=== PATIENT | male | born 1965 | race African-American/Black ===

== ENCOUNTER 2024-01-28 22:27 | Emergency (ER) | payer SELFPAY ==
--- OUTSIDE RECORDS SUMMARY | 2024-01-28 22:31 | XMS REPORT | Continuity of Care Document ---
Author Name Unknown Address [address] [facility] [address] [place] [address] [facility] thconnect Address [address] [facility] [place] [address] Care Team Providers Care Direct Service Provider Name Role Phone Jamari Arango Attending Clinician Unavailable Felix Gaitan Attending Clinician Unavailable Marleen Shea Attending Clinician Unavailable Clifton Lopez Attending Clinician UnavailStacey Youssef Attending Clinician Unavailable Neri Chavis Attending Clinician Unavailable Adriana Staples Attending Clinician Unavailable Fercho Tay Attending Clinician Unavailable Francisco He Attending Clinician Unavailable Marty Walker MD Attending Clinician [phone] Raquel Blanco MD Attending Clinician [phone] Physician, No Primary or Family Admitting Clinic delores Unavailable Raquel Blanco MD Admitting Clinician [phone] Payers Payer Name Policy Type Policy Number Effective Date Expirati on Date Source Allergies, Adverse Reactions, Alerts Allergy Name Allergy Type Status Severity Reaction(s) Onset Date Inactive Date Treating Clinician Comments Source Penicill ins DA Active U HIVES 10-19 00:00: 00 [facility] Penicill ins DA Active NH RASH 10-15 00:00: 00 [facility] PENICILL INS Drug Class Active Hives 6-05 00:00: 00 [facility] Penicill ins DA Active [place] 11-11 00:00: 00 [facility] Penicill ins DA Active NH RASH 11-11 00:00: 00 [facility] Penicill ins DA Active [place] 04-02 00:00: 00 [facility] Penicill ins DA Active NH RASH 04-02 00:00: 00 [facility] NO KNOWN ALLERGIE S Drug Class Active [facility] Encounters Start Date/Time End Date/Time Encounter Type Admission Type Attending Clinicians Care Facility Care Department Encounter ID Source 2022-10-19 13:09:00 2022-10-19 15:50:00 Emergency EM Conchita Jamari [facility] [id number] [facility] 2022-10-19 13:09:00 2022-10-19 15:50:00 [facility] [id number] 52 [facility] 2022-10-15 23:49:00 2022-10-15 23:49:00 Outpatient Felix Gaitan [facility] [id number] [facility] 2022-10-15 13:56:00 2022-10-15 15:38:00 Emergency EM Felix Gaitan [facility] [id number] 61 [facility] 2022-10-13 14:40:00 2022-10-13 14:40:00 Outpatient Marleen Shea [facility] [id number] [facility] 2022-09-03 09:22:00 2022-09-03 10:33:00 Emergency EM [facility]ton Lopez [facility] [id number] 10 [facility] 2022-05-09 01:04:00 2022-05-09 01:10:00 Emergency EM Stacey Willis [facility] [id number] 03 [facility] 2021-06-05 16:02:00 2021-03-15 07:20:00 Inpatient EL Neri Chavis [facility] MRAD [id number] 21 [facility] 2021-03-15 07:16:00 2021-03-15 07:16:00 Outpatient Neri Chavis [facility] [id number] [facility] 2021-03-01 21:33:00 2021-03-02 00:01:00 Emergency EM Adriana Staples [facility] [id number] 00 [facility] 2021-02-14 21:52:00 2021-02-15 00:02:00 Emergency EM Felix Gaitan [facility] [id number] 83 [facility] 2020-12-24 18:34:00 2020-12-24 21:39:00 Emergency EM eFrcho Tay [facility] [id number] 19 [facility] 2020-07-28 18:59:00 2020-07-29 00:12:00 Emergency EM Francisco He [facility] FENG [id number] 24 [facility] 2020-07-28 01:12:00 2020-07-28 11:35:00 Emergency Marty Walker, [facility] [id number] 2020-07-28 01:05:00 2020-07-28 01:05:00 Emergency X [facility] ERT [id number] [facility] 2019-11-12 14:01:00 2019-11-15 22:16:50 Inpatient [facility] FENG [id number] 66 [facility] 2019-10-30 10:43:00 2019-11-04 11:02:21 Inpatient [facility] FENG [id number] [facility] Results Test Description Test Time Test Comments Results Resul t Comments Source - XR CHEST 1 V 2022-10-19 13:44:00 [facility] 1965 Sex: M FAX: Rajesh Coronado [place]: St: DEP Name: ANGELINA CRAIG [facility] : 1965 Age/S: 57/M [address] [facility] Unit #: [id number] Loc: [address] Phys: Rajesh CoronadoP [address] Acct: [id number] Dis Date: Status: DEP ER PHONE #: [phone] Exam Date: 10/19/2022 1327 FAX #: [phone] Reason: PNA R/O EXAMS: CPT CODE: [id number] XR CHEST 1 V 95332 EXAM: XR Chest 1 View INDICATION: PNA R/O LOCATION: B2 COMPARISON: None available. TECHNIQUE: Frontal view of the chest was obtained. FINDINGS: The lungs are clear. There is no pleural effusion or pneumothorax. The cardiomediastinal silhouette is unremarkable. No acute osseous abnormality is identified. IMPRESSION: No acute cardiopulmonary abnormality. at 1344 Reported and signed by: Kendra Beckford M.D. CC: Rajesh Coronado Technologist: JANETT PAREDES Trnscrd Date/Time/By: 10/19/2022 (3001) : By: [email or web address] PAGE 1 Signed Report FAX: Rajesh Coronado [place]: St: DEP Name: ANGELINA CRAIG [facility] : 1965 Age/S: 57/M [address] [facility] [employer] [facility] [place] Unit #: [id number] Loc: [address] [place] [address] Phys: Rajesh Coronado [address] Acct: [id number] Dis Date: Status: DEP ER PHONE #: [phone] Exam Date: 10/19/2022 1327 FAX #: [phone] Reason: PNA R/O EXAMS: CPT CODE: [id number] XR CHEST 1 V 26227 (Continued) Orig Print D/T: S: 10/19/2022 (1347) PAGE 2 Signed Report - XR CHEST 1 V 2022-10-19 13:44:00 [facility] : 1965 Sex: M FAX: Rajesh Coronado [place]: St: REG Name: ANGELINA CRAIG [facility] : 1965 Age/S: 57/M [address] [facility] [employer] Unit #: [id number] Loc: [address] Phys: Rajesh Coronado [address] Acct: [id number] Dis Date: Status: REG ER PHONE #: [phone] Exam Date: 10/19/2022 1327 FAX #: [phone] Reason: PNA R/O EXAMS: CPT CODE: [id number] XR CHEST 1 V 26869 EXAM: XR Chest 1 View INDICATION: PNA R/O LOCATION: B2 COMPARISON: None available. TECHNIQUE: Frontal view of the chest was obtained. FINDINGS: The lungs are clear. There is no pleural effusion or pneumothorax. The cardiomediastinal silhouette is unremarkable. No acute osseous abnormality is identified. IMPRESSION: No acute cardiopulmonary abnormality. at 1344 Reported and signed by: Kendra Beckford M.D. CC: Rajesh Coronado Technologist: JANETT Guaman Date/Time/By: 10/19/2022 (0879) : By: [email or web address] PAGE 1 Signed Report FAX: Rajesh Coronado [place]: St: REG Name: ANGELINA CRAIG [facility] : 1965 Age/S: 57/M [address] [facility] [employer] Unit #: [id number] Loc: E.ERS[address] [place], [place] Phys: Rajesh Coronado [facility] [address] Acct: [id number] Dis Date: Status: REG ER PHONE #: [phone] Exam Date: 10/19/2022 1327 FAX #: [phone] Reason: PNA R/O EXAMS: CPT CODE: [id number] XR CHEST 1 V 55688 (Continued) Orig Print D/T: S: 10/19/2022 (1347) PAGE 2 Signed Report - XR CHEST 1 [id number] 14:50:00 [facility] : 1965 Sex: M FAX: Felix Gaitan MD [place]: St: REG Name: CRAIGANGELINA MARIAH [facility] : 1965 Age/S: 57/M [address] [facility] Unit #: [id number] Loc: E[address]ERS[address] [place], [place]: [place] [address] Acct: [id number] Dis Date: Status: REG ER PHONE #: [phone] Exam Date: 10/15/2022 1446 FAX #: [phone] Reason: COUGH EXAMS: CPT CODE: [id number] XR CHEST 1 V 45204 EXAM: - XR CHEST 1 V INDICATION: COUGH Technique: Frontal view Location: T18 Findings and impression: Lungs appear clear. No pleural effusion seen. Cardiomediastinal silhouette appears unremarkable. Osseous structures appear unremarkable. at 1450 Reported and signed by: Jhonny Rodrigues M.D. CC: Felix Gaitan MD Technologist: HERO HUDDLESTON [facility] Date/Time/By: 10/15/2022 (3697) : By: [email or web address] PAGE 1 Signed Report FAX: Felix Gaitan MD [place]: St: REG Name: ANGELINA CRAIG [facility] : 1965 Age/S: 57/M [address] [facility] Unit #: [id number] Loc: [address] [place]: [place] [address] Acct: [id number] Dis Date: Status: REG ER PHONE #: [phone] Exam Date: 10/15/2022 1446 FAX #: [phone] Reason: COUGH EXAMS: CPT CODE: [id number] XR CHEST 1 P86171 (Continued) Orig Print D/T: S: 10/15/2022 (1825) PAGE 2 Signed Report- XR L-SPINE 2/3 [id number] 10:13:00 [facility] : 1965 Sex: M FAX: Clifton Lopez MD [place]: St: REG Name: ANGELINA CRAIG [facility] : 1965 Age/S: 57/M [address] [facility] [employer] Unit #: [id number] Loc: E.ERS[address] [place], [place]: [place] [address] Acct: [id number] Dis Date: Status: REG ER PHONE #: [phone] Exam Date: 09/03/2022 0955 FAX #: [phone] Reason: pain EXAMS: CPT CODE: [id number] XR L-SPINE 2/3 VIEWS 18321 STUDY: Lumbar spine radiograph HISTORY: Pain COMPARISON: No Prior TECHNIQUE: AP, lateral, and lateral coned down views ofthe lumbar spine. LOCATION: H19 FINDINGS: There are 5 nonrib-bearing lumbar vertebral bodies. There is no significant scoliosis or listhesis. The vertebral body heights are maintained. There is no significant intervertebral disc space narrowing. There are small marginal osteophyte from L3-S1. The pedicles and sacroiliac joints appear symmetric. IMPRESSION: No evidence of acute osseous abnormality. at 1013 Reported and signed by: Robert Amos M.D. CC: Clifton Lopez MD Technologist: SAROJ FLEMING Trnscrd Date/Time/By: 09/03/2022 (1013) : By: [email or web address] PAGE 1 Signed Report FAX: Clifton Lopez MD [place]: St: REG Name: ANGELINA CRAIG [facility] : 1965 Age/S: 57/M [address] [employer] Unit #: [id number] Loc: [address] [place]: [place] [address] Acct: [id number] Dis Date: Status: REG ER PHONE #: [phone] Exam Date: 09/03/2022 0955 FAX #: [phone] Reason: pain EXAMS: CPT CODE: [id number] XRL-SPINE 2/3 VIEWS 21153 (Continued) Orig Print D/T: S: 09/03/2022 (1016) PAGE 2 Signed Report- XR SHOULDER 2 + V [id number] 10:13:00 [facility] : 1965 Sex: M FAX: Clifton Lopez MD [place]: St: REG Name: ANGELINA CRAIG [facility] : 1965 Age/S: 57/M [address] [employer] Unit #: [id number] Loc: LEDY[address] [place], [place]: [place] [address] Acct: [id number] Dis Date: Status: REG ER PHONE #: [phone] Exam Date: 09/03/2022954 FAX #: [phone] Reason: pain EXAMS: CPT CODE: [id number] XR SHOULDER 2 + [place] [address] STUDY: Shoulder radiograph HISTORY: pain COMPARISON: 04/02/2016 TECHNIQUE: Internal rotation, external rotation, and transcapsular Y views of the left shoulder. LOCATION: H19 FINDINGS: There is no acute fracture or glenohumeral dislocation. The acromioclavicular joint exhibits mild osteoarthrosis, unchanged related. There are no abnormal soft tissue calcifications in the region of the rotator cuff to suggest calcific tendinitis. The visualized lung is clear. IMPRESSION: No evidence of acute osseous abnormality. at 1013 Reported and signed by: Robert Amos M.D. CC: Clifton Lopez MD Technologist: SAROJ FLEMING Trnscrd Date/Time/By: 09/03/2022 (1013): By: [email or web address] PAGE 1 Signed Report FAX: Clifton Lopez MD [place]: St: REG Name: ANGELINA CRAIG [facility] : 1965 Age/S: 57/M [address] [employer] Unit #: [id number] Loc: LEDY[address] [place], [place]: [place] [address] Acct: [id number] Dis Date: Status: REG ER PHONE #: [phone] Exam Date: 09/03/2022954 FAX #: [phone] Reason: pain EXAMS: CPT CODE: [id number] XR SHOULDER2 + [place] [address] (Continued) Orig Print D/T: S: 09/03/2022 (1016) PAGE 2 Signed Report- XR C-SPINE 2-3 [id number] 10:12:00 [facility] : 1965 Sex: M FAX: Clifton Lopez MD [place]: St: REG Name: RAFAANGELINAESTHER LEMUS [facility] : 1965 Age/S: 57/M [address] [facility] Unit #: [id number] Loc: [address] [place]: [place] [address] Acct: [id number] Dis Date: Status: REG ER PHONE #: [phone] Exam Date: 09/03/2022 0955 FAX #: [phone] Reason: pain EXAMS: CPT CODE: [id number] XR C-SPINE 2-3 VIEWS 67223 STUDY: Cervical spine radiograph HISTORY: Pain COMPARISON: No Prior TECHNIQUE: 3 views of the cervical spine. LOCATION: H19 FINDINGS: There is no prevertebral soft tissue swelling. There is no significant scoliosis or listhesis. The vertebral body heights are maintained. Multilevel intervertebral disc space narrowing is mild to moderate degree, this appears moderate to advanced at C5-6 with prominent anterior marginal osteophytes. The spinal laminal line is within normal limits. The lateral masses of C1 and C2 are wellaligned. IMPRESSION: No evidence of acute osseous abnormality. Multilevel cervical spondylosis, moderate to advanced at C5-6. at 1012 Reported and signed by: Robert Amos M.D. CC: Clifton Lopez MD Technologist: SAROJ FLEMING Trnilrd Date/Time/By: 09/03/2022 (1012) : By: [email or web address] PAGE 1 Signed Report FAX: Clifton Lopez MD [place]: St: REG -- Name: ANGELINA CRAIG [facility] : 1965 Age/S: 57/M [address] [facility] Unit #: [id number] Loc: [address] [place]: [place] [address] Acct: [id number] Dis Date: Status: REG ER PHONE #: [phone] Exam Date: 09/03/2022954 FAX #: [phone] Reason: pain EXAMS: CPT CODE: [id number] XR C-SPINE 2-3 VIEWS 83921 (Continued) Orig Print D/T: S: 09/03/2022 (1015) PAGE 2 Signed ReportCovid 19 InHouse [id number] 13:58:00* Test Item Value Reference Range Interpretation Comme nts Covid 19 InHouse NTX (test code = [id number]) Positive Negative A This test was pe rformed using the [employer] SmartTM COVID-19 PCRassay. This test was developed and its performancecharacteristics were determined by [facility]. This test has notbeen FDA cleared or approved. This test is authorized by theFDA under Emergency Use Authorization(EUA). The EUA willremain in effect unless it is terminated or revoked by FDA . Testing parameters have not been validated for screeningasymptomatic patients. This test was validated according to the FDA's guidancedocument "Policy for Diagnostics testing in LaboratoriesCertified to Perform High Complexity Testing under CLIA". First test? UnknownEmployed in Healthcare? NoSymptomatic as defined by CDC? YesDate of Symptom Onset: [id number] due to COVID? NoIn ICU due to COVID? NoResident in a congregate care setting? Unknown? NoAge at collection: Y- XR CHEST 1 [id number] 22:38:00 [facility] : 1965 Sex: M FAX: Adriana Staples MD [phone] [place]: St: PRE Name: ANGELINA CRAIG [facility] : 1965 Age/S: 55/M [address] [facility] Unit #: [id number] Loc: [place]: [place] [address] Acct: [id number] Dis Date: Status: PRE ER PHONE #: [phone] Exam Date: 03/01/20212234 FAX #: [phone] Reason: COUGH/COPD EXAMS: CPT CODE: [id number] XR CHEST 1 V 84369 AFTER HOURS SERVICE ON: 03/01/2021 10:38 PM AP Portable Chest Location Code M12 HISTORY: COUGH/COPD FINDINGS: There are no infiltrates. There are no pleural effusions. There is no pneumothorax. Cardiac silhouette andmediastinum appear within normal limits. IMPRESSION: No active pulmonary findings. at 2238 Reported and signed by: Chris Mcpherson M.D. CC: Adriana Staples MD Technologist: [facility] Date/Time/By: 03/01/2021 (2237) : By: [email or web address] PAGE 1 Signed Report FAX: Adriana Staples MD [phone] [place]: St: PRE- Name: ANGELINA CRAIG [facility] : 1965 Age/S: 55/M [address] [facility] Unit #: [id number] Loc: [place]: [place] [address] Acct: [id number] Dis Date: Status: PRE ER PHONE #: [phone] Exam Date: 03/01/20212234 FAX #: [phone] Reason: COUGH/COPD EXAMS: CPT CODE: [id number] XR CHEST 1 V 24669 <Continued> Orig Print D/T: S: 03/01/2021 (7713) PAGE 2 Signed ReportCoronavirus 2019 nCoV [id number] 23:07:00* Test Item Value Reference Range Interpretation Comme nts Coronavirus 2019 nCoV Bedside (test code = [id number]) Negative NEGATIVE Negative results should be treated as presumptive and ifinconsistent with clinical signs and symptoms, or necessaryfor patient management, should be tested with an alternativemolecular assay. Negative results do not preclude TWXT-DrS-8miumajctq and should not be used as the sole basis forpatient management decisions. Negative results should beconsidered in the context of a patient's recent exposures,history, presence of clinical signs and symptoms consistentwith COVID-19. - XR CHEST 1 [id number] 22:49:00 [facility] : 1965 Sex: M FAX: Felix Gaitan MD [place]: St: PRE Name: ANGELINA CRAIG [facility] : 1965 Age/S: 55/M [address] [facility] Unit #: [id number] Loc: E.ERS2 [place], [place]: [place] [address] Acct: [id number] Dis Date: Status: PRE ER PHONE #: [phone] Exam Date: 02/14/20214 FAX #: [phone] Reason: cough EXAMS: CPT CODE: [id number] XR CHEST 1 V 79937 EXAM: - XR CHEST 1 V HISTORY: Cough. COMPARISON: 12/24/2020. FINDINGS: Single AP view of the chest is provided. Heart size and vascularity are within normal limits. There is minimal atelectasis at left lung base. There is no pleural effusion or pneumothorax. There is no definite acute osseous abnormality. IMPRESSION: Minimal left base atelectasis. at 2249 Reported and signed by: Cr Hudson M.D. CC: Felix Gaitan MD Technologist: Jeanne Landin Trnilrd Date/Time/By: 02/14/2021 (4453) : By: [email or web address] PAGE 1 Signed Report FAX: Felix Gaitan MD [place]: EMSt: PRE -- Name: ANGELINA CRAIG [facility] : 1965 Age/S: 55/M [address] [facility] Unit #: [id number] Loc: [address] [place]: [place] [address] Acct: [id number] Dis Date: Status: PRE ER PHONE #: [phone] Exam Date: 02/14/20212247 FAX #: [phone] Reason: cough EXAMS: CPT CODE: [id number] XR CHEST 1 V 57579 <Continued> Orig Print D/T: S: 02/14/2021 (7642) PAGE 2 Signed ReportCOVID 19 INHOUSE [id number] 19:32:00* Test Item Value Reference Range Interpretation Comme nts COVID 19 INHOUSE AG (test code = [id number]) NEGATIVE NEGATIVE Negative results should be treated as presumptive and ifinconsistent with clinical signs and symptoms, or necessaryfor patient management, should be tested with an alternativemolecular assay. Negative results do not preclude LBXP-DwJ-1nubchcoyo and should not be used as the sole basis forpatient management decisions. Negative results should beconsidered in the context of a patient's recent exposures,history, presence of clinical signs and symptoms consistentwith COVID-19. - XR CHEST 1 [id number] 19:29:00 [facility] : 1965 Sex: M FAX: Fercho Tay DO [phone] [place]: St: REG Name: ANGELINA CRAIG [facility] : 1965 Age/S: 55/M [address] [facility] Unit #: [id number] Loc: [place]: [place] [address] Acct: [id number] Dis Date: Status: REG ER PHONE #: [phone] Exam Date: 12/24/20201923 FAX #: [phone] Reason: Cough with sputum EXAMS: CPT CODE: [id number] XR CHEST 1 V 38761 EXAM: - XR CHEST 1 V Location code:C3 HISTORY: Cough with sputum COMPARISON: 07/28/2020 FINDINGS: Single AP view of the chest is provided. Heart size and vascularity are within normal limits. The lungs are clear of focal consolidation. No effusion, pneumothorax, or acute osseous abnormality. IMPRESSION: 1. No radiographic evidence of acute cardiopulmonary process. at 1929 Reported and signed by: Gerardo Pelayo M.D.CC: Fercho Tay DO Technologist: PATRIC HOPE Trnscrd Date/Time/By: 12/24/2020 (1928) : By : [email or web address] PAGE 1 Signed Report FAX: Fercho Tay DO [phone] [place]: St: REG Name: ANGELINA CRAIG [facility] : 1965 Age/S: 55/M [address] [facility] Unit #: [id number] Loc: [place], [place]: [place] [address] Acct: [id number] Dis Date: Status: REG ER PHONE #: [phone] Exam Date: 12/24/20201923 FAX #: [phone] Reason: Cough with sputum EXAMS: CPT CODE: [id number] XR CHEST 1 V 55183 <Continued> Orig Print D/T: S: 12/24/2020 (1932) PAGE 2 Signed ReportUA RFLX MICR CULT IF [id number] 23:21:00* Test Item Value Reference Range Interpretation Comme nts UA COLOR (test code = COLU) YELLOW YEL/STRAW UA APPEARANCE (test code = APPU) CLEAR CLEAR UA GLUCOSE DIPSTICK (test co de = DGLUU) NEGATIVE NEGATIVE UA BILIRUBIN DIPSTICK (test code = BILU) NEGATIVE NEGATIVE UA KETONE DIPSTICK (test cod e = KETU) NEGATIVE NEGATIVE UA SPECIFIC GRAVITY (test co de = SGU) 1.017 1.005-1.030 N UA BLOOD DIPSTICK (test code = PETER) NEGATIVE NEGATIVE UA PH DIPSTICK (test code = ARTHUR) 5.0 5.0-7.0 N UA PROTEIN DIPSTICK (test co de = PROU) NEGATIVE NEGATIVE UA UROBILINIOGEN DIPSTICK (test code = URO) 0.2 mg/dL 0.2-1.0 UA NITRITE DIPSTICK (test co de = BLAKE) NEGATIVE NEGATIVE UA LEUKOCYTE ESTERASE DIPSTI CK (test code = LEUU) NEGATIVE NEGATIVE UA WBC (test code = WBCU) 0-3 WBC/HPF 0-3 UA RBC (test code = RBCU) 0-3 RBC/HPF 0-3 UA WBC NO REFLEX (test code = WBCUCL) 0-3 WBC/HPF 0-3 UA BACTERIA (test code = BACU) NONE SEEN /HPF NONE SEEN UA SQUAMOUS CELLS (test code = SQU) NONE SEEN /HPF NONE SEEN Indication for culture: Dysuria/FrequencySpecimen Description: CLEAN CATCHLACTIC [id number] 20:06:00* Test Item Value Reference Range Interpretation Comme nts LACTIC ACID (test code = LACT) 0.8 mmol/L 0.4-1.9 N B-TYPE NATRIURETIC [id number] 19:55:00* Test Item Value Reference Range Interpretation Comme nts B-TYPE NATRIURETIC PEPTIDE ( test code = BNP) 19.0 PG/ML 0-100 N Coronavirus 2019 nCoV [id number] 19:54:00* Test Item Value Reference Range Interpretation Comme nts Coronavirus 2019 nCoV Bedside (test code = [id number]) NEGATIVE Negative Negative results should be treated as presumptive and, ifinconsistent with clinical signs and symptoms or necessaryfor patient management, should be tested with an alternativemolecular assay. Negative results do not preclude OWIV-QuR-9pdtxontdr and should not be used as the sole basis forpatient management decisions. Negative results should beconsidered in the context of a patient's recent exposures,history, presence of clinical signs and symptoms consistentwith COVID-19. BASIC METABOLIC [id number] 19:46:00* Test Item Value Reference Range Interpretation Comme nts SODIUM (test code = NA) 144 mEq/L 134-147 N POTASSIUM (test code = K) 3.8 mEq/L 3.4-5.0 N CHLORIDE (test code = CL) 113 mEq/L 100-108 H CARBON DIOXIDE (test code = CO2) 26 mEq/l 21-33 N ANION GAP (test code = GAP) 9 0-20 N GLUCOSE (test code = GLU) 114 mg/dL 70-110 H BLOOD UREA NITROGEN (test code = BUN) 13 mg/dL 7-18 N GLOMERULAR FILTRATION RATE (test code = GFR) 83.8 90-95 L Units of measure = ml/min/1.73 m2 CREATININE (test code = CREAT) 1.1 mg/dL 0.6-1.3 N CALCIUM (test code = CA) 8.6 mg/dL 8.0-10.5 N [id number] 19:46:00* Test Item Value Reference Range Interpretation Comme [facility] TROPONIN-I (test code = TROPI) 0.010 ng/mL 0.000-0.045 N Negative: <= 0.0 45 Positive: >= 0.046 Correlation with serial results, other cardiac markers andclinical findings is necessary to determine the clinicalsignificance of this result. Results using different methodologies should not be comparedto one another as quantitative results may vary by method. [id number] 19:46:00* Test Item Value Reference Range Interpretation Comme [facility] D-DIMER (test code = DDIMER) 428 ng/mlFEU See_Comment N THROMBOSIS AND/O R PULMONARY EMBOLISM AND THE CLINICAL CUT- OFF VALUE FOR EXCLUSION (500 ng/mL FEU) OF THESE CONDITIONSIS VALIDATED BY THE UROGYNAECOLOGIST OF THE METHOD. A NEGATIVE D-DIMER RESULT WHEN COMBINED WITH A CLINICALASSESSMENT OF LOW PRETEST PROBABILITY HAS BEEN SHOWN TO HAVEA HIGH NEGATIVE PREDICTIVE VALUE OF DVT OR PE. D-DIMER VALUES >500 ng/mL FEU ARE NOT DIAGNOSTIC FOR DVT, PEor DIC WITHOUT OTHER CONFIRMATORY TESTS AND APPROPRIATECLINICAL EUALUATIONS. [Automated message] The system which generated this result transmitted reference range: <=500. The reference range was not used to interpret this result as normal/abnormal. - XR CHEST 1 [id number] 19:45:00 [facility] : 1965 Sex: MFAX: Francisco Saba [phone] [place]: St: REG Name: ANGELINA CRAIG [facility] [place] : 1965 Age/S: 55/M [address] [place] [address] Unit #: [id number] Loc: [place] [address] Phys: Francisco He DO Acct:[id number] Dis Date: Status: REG ER PHONE #: [phone] Exam Date: 07/28/20201935 FAX #: [phone] Reason: Chest Pain EXAMS: CPT CODE: [id number] XR CHEST 1 V 94580 Chest, single view dated 07/28/2020. HISTORY: Chest pain. Shortness of breath. Cough. Comparison is made to a prior study dated 11/11/2019. The heart is normal in size. The cardiomediastinal shadow is stable. The lungs appear clear. The pulmonary vasculature is normal in caliber. No acute pleural space abnormalities are detected. IMPRESSION: 1. No radiographic evidence of acute cardiopulmonary disease. SL: 131 at 1945 Reported and signed by: Jim Beck M.D. CC: Francisco He DO Technologist: RT Parish(Tiffany) Deniz Date/Time/By: 07/28/2020 (1944) : By: AshlynDMM Orig Print D/T: S: 07/28/2020 (1947) PAGE 1 Signed ReportC W/AUTO [id number] 19:44:00* Test Item Value Reference Range Interpretation Comme nts WHITE BLOOD CELL (test code = WBC) 9.1 x10 3/uL 4.5-11.0 N RED BLOOD CELL (test code = RBC) 5.32 x10 6/uL 4.00-5.60 N HEMOGLOBIN (test code = HGB) 14.2 g/dL 12.5-16.9 N HEMATOCRIT (test code = HCT) 44.2 % 37.5-50.7 N MEAN CELL VOLUME (test code = MCV) 83.1 fL 81.0-99.0 N MEAN CELL HGB (test code = MCH) 26.7 pg 27.0-33.0 L MEAN CELL HGB CONCETRATION (test code = MCHC) 32.1 g/dL 33.0-37.0 L RED CELL DISTRIBUTION WIDTH CV (test code = RDW) 14.6 % 11.5-14.5 H RED CELL DISTRIBUTION WIDTH SD (test code = RDW-SD) 44.0 fL 37.0-54.0 N PLATELET COUNT (test code = PLT) 181 x10 3/uL 150-400 N MEAN PLATELET VOLUME (test c ode = MPV) 11.1 fL 7.0-9.0 H NEUTROPHIL % (test code = NT%) 76.8 % 56.0-77.0 N IMMATURE GRANULOCYTE % (test code = IG%) 0.3 % 0.0-2.0 N LYMPHOCYTE % (test code = LY%) 15.6 % 14.0-32.0 N MONOCYTE % (test code = MO%) 5.8 % 4.8-9.0 N EOSINOPHIL % (test code = EO%) 1.3 % 0.3-3.7 N BASOPHIL % (test code = BA%) 0.2 % 0.0-2.0 N NUCLEATED RBC % (test code = NRBC%) 0.0 % 0-0 N NEUTROPHIL # (test code = NT#) 6.98 x10 3/uL 2.0-7.6 N IMMATURE GRANULOCYTE # (test code = IG#) 0.03 x10 3/uL 0.00-0.03 N LYMPHOCYTE # (test code = LY#) 1.42 x10 3/uL 1.0-3.8 N MONOCYTE # (test code = MO#) 0.53 x10 3/uL 0.1-0.8 N EOSINOPHIL # (test code = EO#) 0.12 x10 3/uL 0.0-0.2 N BASOPHIL # (test code = BA#) 0.02 x10 3/uL 0.0-0.2 N NUCLEATED RBC # (test code = NRBC#) 0.00 x10 3/uL 0.0-0.1 N MANUAL DIFF REQUIRED (test c ode = MDIFF) NO CBC W/AUTO [id number] 19:37:00* Test Item Value Reference Range Interpretation Comme nts WHITE BLOOD CELL (test code = WBC) x10 3/uL 4.5-11.0 RED BLOOD CELL (test code = RBC) x10 6/uL 4.00-5.60 HEMOGLOBIN (test code = HGB) 14.2 g/dL 12.5-16.9 N HEMATOCRIT (test code = HCT) 44.2 % 37.5-50.7 N MEAN CELL VOLUME (test code = MCV) fL 81.0-99.0 MEAN CELL HGB (test code = MCH) pg 27.0-33.0 MEAN CELL HGB CONCETRATION ( test code = MCHC) g/dL 33.0-37.0 RED CELL DISTRIBUTION WIDTH CV (test code = RDW) % 11.5-14.5 PLATELET COUNT (test code = PLT) 181 x10 3/uL 150-400 N NEUTROPHIL % (test code = NT%) % 56.0-77.0 LYMPHOCYTE % (test code = LY%) % 14.0-32.0 NEUTROPHIL # (test code = NT#) x10 3/uL 2.0-7.6 LYMPHOCYTE # (test code = LY#) x10 3/uL 1.0-3.8 MANUAL DIFF REQUIRED (test c ode = MDIFF) Novel Coronavirus 2018 [id number] 13:05:00* Test Item Value Reference Range Interpretation Comme nts Novel Coronavirus 2019 nCoV (test code = COVID19) Negative Negative Does patient have the clinical criteria consistent with COVID-19? YIs the patient going to be discharged home? Y- XR CHEST 2 [id number] 15:59:00FAX: Roxann Laws MD [phone] [place]: St: REG Name: ANGELINA CRAIG [facility] : 1965 Age/S: 54/M [address] [place] [address] Unit #: [id number] Loc: [place] [address] Phys: Roxann Hadley MD Acct: [id number] Dis Date: Status: REG ER PHONE #: [phone] Exam Date: 11/12/2019 1556 FAX #: [phone] Reason: acute cough wheezing EXAMS: CPT CODE: [id number] XR CHEST 2 V 41675 PROCEDURE: Chest Radiograph. Clinical Indication: Acute cough, wheezing, hip pain. Comparison: Chest radiograph 06/27/2010. FINDINGS: The chest shows normal lung volumes without interstitial or airspace opacities, pleural effusions or pneumothorax. The heart size and pulmonary vasculature are normal. The trachea is midline. There are no clinically significant osseous abnormalities noted. IMPRESSION: 1. No chest radiographic evidence of acute cardiopulmonary disease. SL: OCO-H at 9078 Reported and signed by: Erik Jimenez M.D. CC: Roxann Hadley MD Technologist: Jonelle Mccarthy, RT(R); Viridiana Herrera RT(R) Trnilrd Date/Time/By: 11/12/2019 (0472) : By: Naima Orig Print D/T: S: 11/12/2019 (7336) PAGE 1 Signed Report- XR L-SPINE 2/3 [id number] 11:36:00FAX: Bernadine Ross SHELIA [phone] [place]: St: REG Name: ANGELINA CRAIG [facility] : 1965 Age/S: 54/M [address] [place] [address] Unit #: [id number] Loc: [place] [address] Phys: Bernadine Ross Acct: [id number] Dis Date: Status: REG ER PHONE #: [phone] Exam Date: 10/30/2019 113 FAX #:[phone] Reason: lumbar back pain radiating down back left leg EXAMS: CPT CODE: [id number] XR L-SPINE 2/3 VIEWS 88160 Procedure: Lumbar Spine Radiographs. Clinical Indication: Back pain with radiculopathy down the left leg for 2 weeks. Comparison: Lumbar radiographs 06/27/2010. FINDINGS: The 3 views of the lumbar spine show five non rib bearing lumbar vertebral segments. There are no fractures, pars defects, or spondylolisthesis. There is degenerative change from L3 through S1 including narrowing of the intervertebral disc spaces and marginal osteophyte formation. IMPRESSION: 1. Degenerativechange. SL: OCO-H at 1136 Reported and signed by: Erik Jimenez M.D. CC: Bernadine Ross Technologist: RT Nayan(Tiffany) Trnscrd Date/Time/By: 10/30/2019 (1136) : By: Naima Orig Print D/T: S: 10/30/2019 (3718) PAGE 1 Signed Report Notes Date/Time Note Provider Source 2022-10-19 14:15:00 [facility] ([facility] EMERGENCY PROVIDER REPORT REPORT#:[id number] REPORT STATUS: Signed DATE:10/19/22 TIME: 1415 PATIENT: ANGELINA CRAIG UNIT #: [id number] ROOM/BED: AGE: 57 SEX: M PCP PHYS: No Primary or Family Physician SERVICE AUTHOR: Rajesh Coronado * ALL edits or amendments must be made on the electronic/computer document * HPI-URI/Cough/Cold General Initial Greet Date/Time 10/19/22 1309 Presentation Chief Complaint Cough, non-productive Free Text HPI Notes Free Text HPI Notes 57-year-old been able to the past couple of days due to bronchitis: Arrives with a chief complaint of cough. Patient states he was diagnosed couple of days ago and has taken Z-Citlaly and his medications His Cough. Patient Denies Any Worsening Shortness of Breath, Fevers, Nausea, Vomiting, Diarrhea, His Only Concern Due To a Cough That Will Not Stop. Review of Systems ROS Statements All systems rev neg except as marked. Free Text ROS Notes Free Text ROS Notes Constitutional: Denies fatigue, fever Cardiovascular: Denies chest pain Respiratory: Nonproductive cough Denies shortness of breath GI: Denies nausea, vomiting, diarrhea, or abdominal pain Musculoskeletal:Denies decreased ROM, or strength Neurologic: Denies paresthesias, or paralysis Past Medical History - Adult Stated Complaint COUGH Allergies Coded Allergies: Penicillins (Mild, RASH 10/15/22) Home Medications Active Scripts guaiFENesin/DEXTROMETHORPHAN (guaiFENesin-DM (SF) 100-10 MG/5ML) 10 ML PO Q4H PRN PRN COUGH guaiFENesin/DEXTROMETHORPHAN (guaiFENesin-DM (SF) 100-10 MG/5ML) 10 ML PO Q4H PRN PRN COUGH #118 ML Prov: 12/24/20 predniSONE 50 MG PO DAILY predniSONE 50 MG PO DAILY #5 TABS Prov: 12/24/20 AZITHROMYCIN (Z-CITLALY) 250 MG PO ASDIR AZITHROMYCIN (Z-CITLALY) 250 MG PO ASDIR #6 TABS Prov: 02/14/21 AZITHROMYCIN (Z-CITLALY) 250 MG PO ASDIR AZITHROMYCIN (Z-CITLALY) 250 MG PO ASDIR #6 TABS Prov: 10/15/22 guaiFENesin/DEXTROMETHORPHAN (guaiFENesin-DM 100-10 MG/5ML) 5 ML PO Q4H PRN PRN cough guaiFENesin/DEXTROMETHORPHAN (guaiFENesin-DM 100-10 MG/5ML) 5 ML PO Q4H PRN PRN cough #100 ML Prov: 10/15/22 methocarbamoL (ROBAXIN) 1,000 MG PO TID PRN PRN MUSCLE SPASMS/PAIN methocarbamoL (ROBAXIN) 1,000 MG PO TID PRN PRN MUSCLE SPASMS/PAIN #20 TABS Prov: 09/03/22 AZITHROMYCIN (Z-CITLALY) 250 MG PO ASDIR AZITHROMYCIN (Z-CITLALY) 250 MG PO ASDIR #6 TABS Prov: 03/01/21 ALBUTEROL (PROVENTIL HFA 90 MCG/ACT 6.7 GM) 1 PUFF INH RTQ4H ALBUTEROL (PROVENTIL HFA 90 MCG/ACT 6.7 GM) 1 PUFF INH RTQ4H #6.7 GM Prov: 03/01/21 predniSONE 20 MG PO DAILY predniSONE 20 MG PO DAILY #5 TABS Prov: 03/01/21 BENZONATATE (TESSALON) 200 MG PO Q8H PRN PRN COUGH BENZONATATE (TESSALON) 200 MG PO Q8H PRN PRN COUGH #20 CAPS Prov: 03/01/21 Review of Nursing Notes Triage notes reviewed Smoking status for patients 13 years old or older: Current every day smoker Ambulatory Status Independent Physical Exam Vital Signs Vital Signs First Documented: Result Date Time Pulse Ox 99 10/19 1310 B/P 127/84 10/19 1310 B/P Mean 98 10/19 1310 Temp 97.9 10/19 1310 Pulse 74 10/19 1310 Resp 18 10/19 1310 O2 Delivery Room air 10/19 1551 Last Documented: Result Date Time Pulse Ox 96 10/19 1551 B/P 126/86 10/19 1551 B/P Mean 99 10/19 1551 O2 Delivery Room air 10/19 1551 Temp 98.2 10/19 1551 Pulse 50 10/19 1551 Resp 16 10/19 1551 Review of Vital Signs Reviewed Free Text PE Notes Free Text PE Notes General: Awake, alert, no acute distress, nontoxic appearing ENT: Airway patent Respiratory: No signs of respiratory distress, BBS CTA Cardiovascular: Heart sounds NL GI: soft, non-tender, no rebound, guarding, or distention Musculoskeletal: unremarkable Neurologic: Spontaneously awake and alert, speech NL, no motor deficits noted Interpretation Diagnostics Lab Results Interpretation Results Microbiology: Date/Time Procedure - Status Source Growth 10/19 1313 Group A Strep Rapid Antigen - CAN THROAT Cancelled: Cancelled via OE: Physician Decision 10/19 1313 Influenza Virus Type B Antigen - CAN NASOPHARG Cancelled: Cancelled via OE: Physician Decision 10/19 1313 Influenza Virus Type A Antigen - CAN NASOPHARG Cancelled: Cancelled via OE: Physician Decision Recent Impressions: RADIOLOGY - XR CHEST 1 V 10/19 1327 Report Impression - Status: SIGNED Entered: 10/19/2022 1347 IMPRESSION: No acute cardiopulmonary abnormality. Impression By: AshlynEBJose Beckford M.D. Point of Care Testing Pulse Oximetry Pulse Ox % 99 On: Room air Interpretation Interpreted by me, Pulse oximetry normal Time 1314 Re-Evaluation MDM Free Text MDM Notes Additional Text Patient arrives with concern due to persistent cough and recent diagnosis of bronchitis Nontoxic in appearance, not septic Differentials include not limited to: Postviral cough, allergies, reactive airway disease Patient reports no chest pain, no shortness of breath, no fevers, no worsening condition, states he feels better and is only concerned due to the cough. Imaging shows no obvious evidence of pneumonia. No acute abnormalities Patient medicated for cough, discharged education and follow-up instructions -The patient has been informed of today's diagnosis, along with any treatments provided, the reasoning and results of any testing that had been done, and any medications that have been administered or prescribed. They have been provided with instructions on any follow-up that is required, a list of free, or low cost , clinics, and providers, in the area, as well as referrals to the appropriate specialists, and when it is necessary to seek emergent medical interventions. Re-Evaluation/Progress Re-Evaluation/Progress Time of Re-Eval 1419 Plan Post Re-Eval Plan discharge URI/Flu Adult MDM Note The patient is now resting comfortably, is alert and in no distress. The patient has a normal mental status and is neurologically intact. The patient appears well and is able to tolerate food or fluid by mouth, and there is no significant dehydration. There is no respiratory distress and no signs of systemic toxicity. The history, exam, diagnostic testing (if any) and current condition do not demonstrate an infectious process such as meningitis, severe pneumonia, retropharyngeal abscess, epiglottitis, sepsis or other serious bacterial infection requiring further testing, treatment, consultation, or admission at this time. The vital signs have been stable. The patient's condition is stable and appropriate for discharge. The patient will pursue further outpatient evaluation with the primary care physician or other designated or consulting physician as indicated in the discharge instructions. ED Course Medication(s) Ordered Medication(s) Ordered: Central Nervous System Agents Sig/Alina Start time Last Medication Dose Route Stop Time Status Admin Acetaminophen/ 5 ML X1ED STA 10/20 1427 DC Codeine Phosphate PO 10/19 142 Patient Discharge Departure Vital Signs/Condition Vital Signs First Documented: Result Date Time Pulse Ox 99 10/19 1310 B/P 127/84 10/19 1310 B/P Mean 98 10/19 1310 Temp 97.9 10/19 1310 Pulse 74 10/19 1310 Resp 18 10/19 1310 O2 Delivery Room air 10/19 1551 Last Documented: Result Date Time Pulse Ox 96 10/19 1551 B/P 126/86 10/19 1551 B/P Mean 99 10/19 1551 O2 Delivery Room air 10/19 1551 Temp 98.2 10/19 1551 Pulse 50 10/19 1551 Resp 16 10/19 1551 All vital signs available at the time of this entry have been reviewed. Condition Stable, Improved Clinical Impression Clinical Impression Primary Impression: Post-viral cough syndrome Time of Impression 1419 Disposition Decision Discharge )( Discharged to Home Yes )( Time 1419 )( Date 10/19/22 Discharge/Care Plan Counseled Regarding Diagnosis, Need for follow-up, When to return to ED, Smoking cessation Patient Instructions ED Cough GCDV Additional Instructions Thank you for allowing us to provide emergent medical care to you or your family member. We consider it a privilege to have served you during your illness or injury. The examination and treatment that you have received has been on an emergency basis only and is not intended as an effort to provide complete medical care. It is impossible to recognize and treat all elements of an illness or injury in a single ER visit. Your examination and evaluations have shown no further need for EMERGENT concern today, but FOR CONTINUED CARE of todays concern, you will need to follow-up with your family physician. -Please read the instructions provided -You may utilize [id number] medications, as allowed by your family physician, to assist with today's symptoms. - If you have received a prescription, please fill it TODAY and follow the instructions carefully. -Follow-up with specialty physician - Return to the ER for worsening symptoms. -You may follow-up on [email or web address] for complete copy of today's testing. Referrals Provider Referral: Telly Armijo MD Follow-Up: As Needed Notes: PULMONARY [facility] [address] [place] [id number] Provider Referral: Edie Toledo Follow-Up: 2-3 Days Notes: FAMILY MEDICINE Address: [address] [place] [address] [address] [place] [address] Departure Forms FREE OR LOW COST [facility] PCP LIST Discharge Note I have spoken with the patient and/or caregivers. I have explained the patient's condition, diagnoses and treatment plan based on the information available to me at this time. I have answered the patient's and/or caregiver's questions and addressed any concerns. The patient and/or caregivers have as good an understanding of the patient's diagnosis, condition and treatment plan as can be expected at this point. The vital signs have been stable. The patient's condition is stable and appropriate for discharge from the emergency department. The patient will pursue further outpatient evaluation with the primary care physician or other designated or consulting physician as outlined in the discharge instructions. The patient and/or caregivers are agreeable to this plan of care and follow-up instructions have been explained in detail. The patient and/or caregivers have received these instructions in written format and have expressed an understanding of the discharge instructions. The patient and/or caregivers are aware that any significant change in condition or worsening of symptoms should prompt an immediate return to this or the closest emergency department or a call to 911. at 2048 at 1955 [facility] #:[id number] END OF REPORT [facility] 2022-10-15 15:18:00 [facility] ([facility]) EMERGENCY PROVIDER REPORT REPORT#:[id number] REPORT STATUS: Signed DATE:10/15/22 TIME: 151 PATIENT: ANGELINA CRAIG UNIT #: [id number] ROOM/BED: AGE: 57 SEX: M PCP PHYS: No Primary or Family Physician SERVICE AUTHOR: Felix Gaitan MD * ALL edits or amendments must be made on the electronic/computer document * HPI-URI/Cough/Cold General Initial Greet Date/Time 10/15/22 1358 Presentation Chief Complaint Cough, productive, Nasal congestion, Runny nose Free Text HPI Notes Free Text HPI Notes 57-year-old male presents to the ED with non productive since yesterday, no chest pain, no shortness of breath, no leg swelling no recent travel. Review of Systems ROS Statements All systems rev neg except as marked. Past Medical History - Adult Stated Complaint COUGH Allergies Coded Allergies: Penicillins (Mild, RASH 10/15/22) Home Medications Active Scripts guaiFENesin/DEXTROMETHORPHAN (guaiFENesin-DM (SF) 100-10 MG/5ML) 10 ML PO Q4H PRN PRN COUGH guaiFENesin/DEXTROMETHORPHAN (guaiFENesin-DM (SF) 100-10 MG/5ML) 10 ML PO Q4H PRN PRN COUGH #118 ML Prov: 12/24/20 predniSONE 50 MG PO DAILY predniSONE 50 MG PO DAILY #5 TABS Prov: 12/24/20 AZITHROMYCIN (Z-CITLALY) 250 MG PO ASDIR AZITHROMYCIN (Z-CITLALY) 250 MG PO ASDIR #6 TABS Prov: 02/14/21 methocarbamoL (ROBAXIN) 1,000 MG PO TID PRN PRN MUSCLE SPASMS/PAIN methocarbamoL (ROBAXIN) 1,000 MG PO TID PRN PRN MUSCLE SPASMS/PAIN #20 TABS Prov: 09/03/22 AZITHROMYCIN (Z-CITLALY) 250 MG PO ASDIR AZITHROMYCIN (Z-CITLALY) 250 MG PO ASDIR #6 TABS Prov: 03/01/21 ALBUTEROL (PROVENTIL HFA 90 MCG/ACT 6.7 GM) 1 PUFF INH RTQ4H ALBUTEROL (PROVENTIL HFA 90 MCG/ACT 6.7 GM) 1 PUFF INH RTQ4H #6.7 GM Prov: 03/01/21 predniSONE 20 MG PO DAILY predniSONE 20 MG PO DAILY #5 TABS Prov: 03/01/21 BENZONATATE (TESSALON) 200 MG PO Q8H PRN PRN COUGH BENZONATATE (TESSALON) 200 MG PO Q8H PRN PRN COUGH #20 CAPS Prov: 03/01/21 Pt reports no significant: Past medical history, Past surgical history Alcohol Use Alcohol use (social EtOH use) Drug Use Denies recreational drugs Smoking status for patients 13 years old or older: Current every day smoker Physical Exam Vital Signs Vital Signs First Documented: Result Date Time Pulse Ox 98 10/15 1357 B/P 123/72 10/15 1357 B/P Mean 89 10/15 1357 O2 Delivery Room air 10/15 135 Temp 36.6 10/15 1357 Pulse 90 10/15 1357 Resp 17 10/15 1357 Last Documented: Result Date Time Pulse Ox 98 10/15 1357 B/P 123/72 10/15 1357 B/P Mean 89 10/15 1357 O2 Delivery Room air 10/15 1357 Temp 36.6 10/15 1357 Pulse 90 10/15 1357 Resp 17 10/15 1357 Review of Vital Signs Reviewed Focused PE General/Const General/Const Awake, Alert, Well appearing, Not toxic appearing Eyes Eyes PERRL Ears/Nose/Throat Ears/Nose/Throat Airway patent, Mucous membranes moist, Pharynx NL, Tympanic membs NL, Ext aud canal NL, Nose exam NL, No sinus tenderness MS Neck Neck Supple, No meningismus, Full range of motion, No adenopathy, No swelling , Non-tender Resp/Chest Respiratory/Chest Breath sounds NL, Breath sounds = bilat, No respiratory distress, No rales, No rhonchi, No wheezing, No retractions, No stridor Cardiovascular Cardiovascular Heart rate NL, Regular rhythm, Heart sounds NL, Peripheral circulation NL Abdomen/GI Abdomen/GI Soft, Non-tender, No guarding, No rebound Skin Skin Color NL, No rash, Warm, Dry, Turgor NL Neurologic Neurologic Oriented X3, Speech NL, No motor deficits, No sensory deficits Interpretation Diagnostics Lab Results Interpretation Considerations Independ review imaging, Reviewed prior records Results Laboratory Tests: 10/16 1435 Serology SARS CoV-2 RNA Rapid AAYAN (NEGATIVE) Negative Microbiology: Date/Time Procedure - Status Source Growth 08/23 1435 Group A Strep Rapid Antigen - COMP THROAT 10/15 1435 Streptococcus Culture - COMP THROAT 10/15 1435 Influenza Virus Type B Antigen - COMP NASOPHARG 10/15 1435 Influenza Virus Type A Antigen - COMP NASOPHARG Recent Impressions: RADIOLOGY - XR CHEST 1 V 10/15 1446 Report Impression - Status: SIGNED Entered: 10/15/2022 1453 impression: Lungs appear clear. No pleural effusion seen. Cardiomediastinal silhouette appears unremarkable. Osseous structures appear unremarkable. Impression By: AshlynAHPadma Rodrigues M.D. Lab Statement Laboratory studies reviewed and considered in the medical decision-making. Imaging Statement Radiographic studies reviewed and considered in the medical decision-making. Point of Care Testing Pulse Oximetry Pulse Ox % 98 On: Room air Interpretation Interpreted by me, Pulse oximetry normal Re-Evaluation MDM Free Text MDM Notes Free Text MDM Notes no hypoxemia no resp distress Re-Evaluation/Progress Re-Evaluation/Progress Re-Eval Status Unchanged ED Course Medication(s) Ordered Medication(s) Ordered: Central Nervous System Agents Sig/Alina Start time Last Medication Dose Route Stop Time Status Admin Acetaminophen 650 MG X1ED STA 10/15 1421 DC 10/15 PO 10/15 1422 1442 Differential Diagnosis Differential Diagnosis Pneumonia, Pneumonia, bacterial, Pneumonia, community acq , Seasonal allergy Patient Discharge Departure Vital Signs/Condition Vital Signs First Documented: Result Date Time Pulse Ox 98 10/15 1357 B/P 123/72 10/15 1357 B/P Mean 89 10/15 1357 O2 Delivery Room air 10/15 1357 Temp 36.6 10/15 1357 Pulse 90 10/15 1357 Resp 17 10/15 1357 Last Documented: Result Date Time Pulse Ox 98 10/15 1357 B/P 123/72 10/15 1357 B/P Mean 89 10/15 1357 O2 Delivery Room air 10/15 1357 Temp 36.6 10/15 1357 Pulse 90 10/15 1357 Resp 17 10/15 1357 All vital signs available at the time of this entry have been reviewed. Condition Stable, Improved Clinical Impression Clinical Impression Primary Impression: Cough Secondary Impressions: Bronchitis Disposition Decision Discharge )( Discharged to Home Yes )( Time 1519 )( Date 10/15/22 Discharge/Care Plan Counseled Regarding Diagnosis, Imaging studies, Need for follow-up, When to return to ED (Auto) Prescriptions Current Visit Scripts AZITHROMYCIN (Z-CITLALY) 250 MG PO ASDIR AZITHROMYCIN (Z-CITLALY) 250 MG PO ASDIR #6 TABS Take 2 tablets today, then 1 tablet daily thereafter for a total of 5 days of treatment. guaiFENesin/DEXTROMETHORPHAN (guaiFENesin-DM 100-10 MG/5ML) 5 ML PO Q4H PRN PRN cough guaiFENesin/DEXTROMETHORPHAN (guaiFENesin-DM 100-10 MG/5ML) 5 ML PO Q4H PRN PRN cough #100 ML Prescriptions Reviewed Risks, Benefits, Alternative treatment Patient Instructions ED URI Abx Referrals Provider Referral: Neri Chavis MD Address: [address] [place] [address] Provider Referral: Francisco Decker MD Address: [address] [place] [address] Departure Forms [facility] PCP LIST WORK/SCHOOL EXCUSE-CAREGIVER 2 Discharge Note I have spoken with the patient and/or caregivers. I have explained the patient's condition, diagnoses and treatment plan based on the information available to me at this time. I have answered the patient's and/or caregiver's questions and addressed any concerns. The patient and/or caregivers have as good an understanding of the patient's diagnosis, condition and treatment plan as can be expected at this point. The vital signs have been stable. The patient's condition is stable and appropriate for discharge from the emergency department. The patient will pursue further outpatient evaluation with the primary care physician or other designated or consulting physician as outlined in the discharge instructions. The patient and/or caregivers are agreeable to this plan of care and follow-up instructions have been explained in detail. The patient and/or caregivers have received these instructions in written format and have expressed an understanding of the discharge instructions. The patient and/or caregivers are aware that any significant change in condition or worsening of symptoms should prompt an immediate return to this or the closest emergency department or a call to 911. Quality Measures BP F/U for HTN Referred for BP f/u < 4wk, F/u with PCP/other doc Approp Tx for URI 3 months or older, Dx upper resp infection, Given Abx for other Dx Smoking Cessation Screened, tobacco user, Tobacco cess intervention Tobacco Screening/Cessation 18 years or older, Tobacco user Smoking Cessation Counseling The patient was questioned regarding their smoking habits, and I have determined , as the patient's treating physician, that there is a medical necessity in regards to the patient's medical condition to provide smoking cessation program education. The patient was advised to stop smoking and counseled for a period of greater than 3 minutes. The patient was instructed to follow up with a primary care physician for smoking cessation and given information regarding local smoking cessation programs in the area. The patient received detailed discharge instructions as to how to stop smoking. The patient expressed an understanding of the need to follow up and the plan for smoking cessation. at 1628 RPT #:[id number] END OF REPORT [facility] 2022-09-03 09:32:00 [facility] ([facility]) EMERGENCY PROVIDER REPORT REPORT#:[id number] REPORT STATUS: Signed DATE:09/03/22 TIME: 931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 (SF) 100-10 MG/5ML) 10 ML PO Q4H PRN PRN COUGH #118 ML Prov: 12/24/20 predniSONE 50 MG PO DAILY predniSONE 50 MG PO DAILY #5 TABS Prov: 12/24/20 Alcohol Use Alcohol use (social EtOH use) Drug Use Denies recreational drugs Smoking status: Smoking status for patients 13 years old or older: Current every day smoker Physical Exam Vital Signs Vital Signs First Documented: Result Date Time Pulse Ox 97 02/14 2153 B/P 127/82 02/14 2153 B/P Mean 97 02/14 2153 O2 Delivery Room air 02/14 2153 Temp 37.9 02/14 2153 Pulse 93 02/14 2153 Resp 02/14 Last Documented: Result Date Time Pulse Ox 94 02/15 B/P 118/77 02/15 B/P Mean 90 02/15 O2 Delivery Room air 02/15 Pulse 95 02/15 Resp 18 02/15 Temp 37.9 02/14 2153 Review of Vital Signs Reviewed Focused PE General/Const General/Const Awake, Alert, Well appearing, Not toxic appearing Eyes Eyes PERRL Ears/Nose/Throat Ears/Nose/Throat Airway patent, Mucous membranes moist, Pharynx NL, Tympanic membs NL, Ext aud canal NL, Nose exam NL, No sinus tenderness MS Neck Neck Supple, No meningismus, Full range of motion, No adenopathy, No swelling , Non-tender Resp/Chest Text/Dict Notes Diminished breath sounds crackles at the bases. Good bilateral breath sounds noted. No tachypnea Cardiovascular Cardiovascular Heart rate NL, Regular rhythm, Heart sounds NL, Peripheral circulation NL Abdomen/GI Abdomen/GI Soft, Non-tender, No guarding, No rebound Skin Skin Color NL, No rash, Warm, Dry, Turgor NL Neurologic Neurologic Oriented X3, Speech NL, No motor deficits, No sensory deficits Interpretation Diagnostics Lab Results Interpretation Considerations Independ review imaging, Reviewed prior records Results Laboratory Tests: 02/15 2240 Serology SARS CoV-2 RNA Rapid AYAAN (NEGATIVE) Negative Microbiology: Date/Time Procedure - Status Source Growth 02/15 2240 Influenza Virus Type B Antigen - COMP NASOPHARG 02/15 2240 Influenza Virus Type A Antigen - COMP NASOPHARG Recent Impressions: RADIOLOGY - XR CHEST 1 V 02/15 2248 Report Impression - Status: SIGNED Entered: 02/14/20212252 IMPRESSION: Minimal left base atelectasis. Impression By: Elba Hudson M.D. Lab Statement Laboratory studies reviewed and considered in the medical decision-making. Point of Care Testing Pulse Oximetry Pulse Ox % 98 On: Room air Interpretation Interpreted by me, Pulse oximetry normal Re-Evaluation MDM Free Text MDM Notes Free Text MDM Notes Nontoxic-appearing no hypoxemia Re-Evaluation/Progress Re-Evaluation/Progress Re-Eval Status Improved Pain Re-Evaluation Denies pain Exam Post Tx - General Active, Alert, Appears non-toxic Patient Discharge Departure Vital Signs/Condition Vital Signs First Documented: Result Date Time Pulse Ox 97 02/14 2153 B/P 127/82 02/14 2153 B/P Mean 97 02/14 2153 O2 Delivery Room air 02/14 2153 Temp 37.9 02/14 2153 Pulse 93 02/14 2153 Resp 18 02/14 2153 Last Documented: Result Date Time Pulse Ox 94 02/15 B/P 118/77 02/15 B/P Mean 90 02/15 O2 Delivery Room air 02/15 Pulse 95 02/15 Resp 18 02/15 Temp 37.9 02/14 2153 All vital signs available at the time of this entry have been reviewed. Condition Stable, Improved Clinical Impression Clinical Impression Primary Impression: Acute bacterial bronchitis Disposition Decision Discharge )( Discharged to Home Yes )( Time 235 )( Date 02/14/21 Discharge/Care Plan Counseled Regarding Diagnosis, Lab results, Need for admission, When to return to ED (Auto) Prescriptions Current Visit Scripts AZITHROMYCIN (Z-CITLALY) 250 MG PO ASDIR AZITHROMYCIN (Z-CITLALY) 250 MG PO ASDIR #6 TABS Take 2 tablets today, then 1 tablet daily thereafter for a total of 5 days of treatment. Prescriptions Reviewed Risks, Benefits, Alternative treatment Patient Instructions ED Upper Resp Infec Abx Tx Referrals PRIMARY CARE RETURN TO THE ER Departure Forms [facility] PCP LIST WORK/SCHOOL EXCUSE-CAREGIVER 2 Discharge Note I have spoken with the patient and/or caregivers. I have explained the patient's condition, diagnoses and treatment plan based on the information available to me at this time. I have answered the patient's and/or caregiver's questions and addressed any concerns. The patient and/or caregivers have as good an understanding of the patient's diagnosis, condition and treatment plan as can be expected at this point. The vital signs have been stable. The patient's condition is stable and appropriate for discharge from the emergency department. The patient will pursue further outpatient evaluation with the primary care physician or other designated or consulting physician as outlined in the discharge instructions. The patient and/or caregivers are agreeable to this plan of care and follow-up instructions have been explained in detail. The patient and/or caregivers have received these instructions in written format and have expressed an understanding of the discharge instructions. The patient and/or caregivers are aware that any significant change in condition or worsening of symptoms should prompt an immediate return to this or the closest emergency department or a call to 911. Quality Measures BP F/U for HTN Referred for BP f/u < 4wk, F/u with PCP/other doc Acute Bronchitis Ab 3 months or older (BACTARIAL), Bronchitis/bronchiolitis, Abx given for med reason at 0533 RPT #:[id number] END OF REPORT [facility] 2020-12-24 19:02:00 [facility] ([facility]) EMERGENCY PROVIDER REPORT REPORT#:[id number] REPORT STATUS: Signed DATE:12/24/20 TIME: 1901 PATIENT: ANGELINA CRAIG UNIT #: [id number] ROOM/BED: AGE: 55 SEX: M PCP PHYS: No Primary or Family Physician SERVICE AUTHOR: Fercho Tay DO * ALL edits or amendments must be made on the electronic/computer document * HPI-URI/Cough/Cold General Initial Greet Date/Time 12/24/20 184 Presentation Chief Complaint Cough, productive Free Text HPI Notes Free Text HPI Notes Is a 55-year-old male presenting to the ED with chief complaint of cough and sputum which started earlier today. Denies any fever chills denies any shortness of breath or chest pain Review of Systems ROS Statements All systems rev neg except as marked. Free Text ROS Notes Free Text ROS Notes Constitutional: Patient denies recent illness fever injury Musculoskeletal: Patient denies neck or back pain and calf pain Pulm: Reports cough Chest: Pt denies chest pain, palpitations Lymph: Patient denies palpable lymph nodes or ankle swelling GI: Patient denies abdominal pain, nausea, vomiting, diarrhea and black stools : Patient denies problems with urination Eyes: Patient denies problems with vision HEENT: Patient denies sore throat, difficulty swallowing Skin: Patient denies rash, redness Endo: Patient denies recent weight change Neuro: Patient denies headache or syncope Psych: Patient denies anxiety or depression, denies SI All other systems reviewed and negative Past Medical History - Adult Stated Complaint COUGH WITH SPUTUM SINCE THIS MORNING Allergies Coded Allergies: Penicillins (Mild, RASH 11/12/19) Home Medications Discontinued Scripts AZITHROMYCIN (Z-CITLALY) 250 MG PO ASDIR AZITHROMYCIN (Z-CITLALY) 250 MG PO ASDIR #6 TABS Prov: 07/28/20 DC: 12/24/201953 Patient stopped taking KETOROLAC (TORADOL) 10 MG PO Q6H PRN PRN PAIN KETOROLAC (TORADOL) 10 MG PO Q6H PRN PRN PAIN #20 TABS Prov: 07/28/20 DC: 12/24/201953 Patient stopped taking Alcohol Use Alcohol use (social EtOH use) Drug Use Denies recreational drugs Smoking status: Smoking status for patients 13 years old or older: Current some day smoker Physical Exam Vital Signs Vital Signs First Documented: Result Date Time Pulse Ox 98 12/24 1842 B/P 114/76 12/24 1842 B/P Mean 88 12/24 1842 O2 Delivery Room air 12/24 1842 Temp 36.6 12/24 1842 Pulse 79 12/24 1842 Resp 19 12/24 1842 Last Documented: Result Date Time Pulse Ox 100 12/24 2138 B/P 138/89 12/24 2138 B/P Mean 105 12/24 2138 O2 Delivery Room air 12/24 2138 Temp 37.1 12/24 2138 Pulse 72 12/24 2138 Resp 19 12/24 2138 Review of Vital Signs Reviewed Free Text PE Notes Free Text PE Notes General: Patient in no acute distress, appears stated age HEENT: Normocephalic, atraumatic, nares are patent bilaterally, pupils are equal round reactive to light and accommodation intact Neck: Trachea is midline, no JVD present, no subcutaneous emphysema Chest: Breath sounds are present in all [place], no wheezes rales or rhonchi, equal excursion normal respiratory effort Cardiovascular: Regular rate and rhythm with no rubs murmurs or gallops, Extremities: Normal range of movement active and passive, 2+ pulses in all extremities, no edema, normal color Neuro: Cranial nerves II through XII grossly intact, patient able to move all extremities, no focal neuro deficits Psych: Appropriate mood and affect Back: No vertebral tenderness, no CVA tenderness Abdomen: Abdomen is soft non-tender non-distended, no pulsatile masses, no abdominal bruits, normal bowel sounds Interpretation Diagnostics Lab Results Interpretation Results Laboratory Tests: 12/24 1902 Serology SARS-CoV-2 Ag (Rapid) (NEGATIVE) NEGATIVE Recent Impressions: RADIOLOGY - XR CHEST 1 V 12/25 1923 Report Impression - Status: SIGNED Entered: 12/24/20201932 IMPRESSION: 1. No radiographic evidence of acute cardiopulmonary process. Impression By: [email or web address] - Gerardo Pelayo M.D. Re-Evaluation MDM Re-Evaluation/Progress Re-Evaluation/Progress Time of Re-Eval 1999 Re-Eval Status Improved Patient Discharge Departure Vital Signs/Condition Vital Signs First Documented: Result Date Time Pulse Ox 98 12/24 1842 B/P 114/76 12/24 1842 B/P Mean 88 12/24 1842 O2 Delivery Room air 12/24 1842 Temp 36.6 12/24 1842 Pulse 79 12/24 1842 Resp 19 12/24 1842 Last Documented: Result Date Time Pulse Ox 100 12/24 2138 B/P 138/89 12/24 2138 B/P Mean 105 12/24 2138 O2 Delivery Room air 12/24 2138 Temp 37.1 12/24 2138 Pulse 72 12/24 2138 Resp 19 12/24 2138 All vital signs available at the time of this entry have been reviewed. Clinical Impression Clinical Impression Primary Impression: Bronchitis Secondary Impressions: Cough Disposition Decision Discharge )( Discharged to Home Yes )( Time 2129 )( Date 12/24/20 Discharge/Care Plan Counseled Regarding Diagnosis, Lab results, Imaging studies, Prescriptions, Need for follow-up, When to return to ED Prescriptions Guaifenesin with dextromethorphan, prednisone (Auto) Prescriptions Current Visit Scripts guaiFENesin/DEXTROMETHORPHAN (guaiFENesin-DM (SF) 100-10 MG/5ML) 10 ML PO Q4H PRN PRN COUGH guaiFENesin/DEXTROMETHORPHAN (guaiFENesin-DM (SF) 100-10 MG/5ML) 10 ML PO Q4H PRN PRN COUGH #118 ML predniSONE 50 MG PO DAILY predniSONE 50 MG PO DAILY #5 TABS Prescriptions Reviewed Risks, Benefits, Alternative treatment Patient Instructions ED Cough GCDV, ED Upper Resp Infec No Abx Tx Referrals PRIMARY CARE: 2-3 Days Discharge Note I have spoken with the patient and/or caregivers. I have explained the patient's condition, diagnoses and treatment plan based on the information available to me at this time. I have answered the patient's and/or caregiver's questions and addressed any concerns. The patient and/or caregivers have as good an understanding of the patient's diagnosis, condition and treatment plan as can be expected at this point. The vital signs have been stable. The patient's condition is stable and appropriate for discharge from the emergency department. The patient will pursue further outpatient evaluation with the primary care physician or other designated or consulting physician as outlined in the discharge instructions. The patient and/or caregivers are agreeable to this plan of care and follow-up instructions have been explained in detail. The patient and/or caregivers have received these instructions in written format and have expressed an understanding of the discharge instructions. The patient and/or caregivers are aware that any significant change in condition or worsening of symptoms should prompt an immediate return to this or the closest emergency department or a call to 911. at 0110 [facility] #:[phone] END OF REPORT [facility] 2020-07-28 19:05:00 [facility] ([facility]) EMERGENCY PROVIDER REPORT REPORT#:[id number] REPORT STATUS: Signed DATE:07/28/20 TIME: 1904 PATIENT: ANGELINA CRAIG UNIT #: [id number] ROOM/BED: AGE: 55 SEX: M PCP PHYS: No Primary or Family Physician SERVICE AUTHOR: Francisco He DO * ALL edits or amendments must be made on the electronic/computer document * HPI-Dyspnea/Wheezing Free Text HPI Notes Free Text HPI Notes 55M no significant PMHx complaining of chest pain cough and decreased p.o. intake for 3 days due to having no appetite. Denies fevers chills or night sweats. Patient states that he has been having chest pain due to coughing. Cough is nonproductive. Denies abdominal pain nausea or vomiting. General Initial Greet Date/Time 07/28/201899 PCP No PCP Presentation Chief Complaint Chest pain )( Sudden in Onset? No Review of Systems ROS Statements All systems rev neg except as marked. Past Medical History - Adult Stated Complaint SOB AND COUGH FOR 3 DAYS Allergies Coded Allergies: Penicillins (Mild, RASH 11/12/19) Physical Exam Vital Signs Vital Signs First Documented: Result Date Time Pulse Ox 97 07/29 1919 B/P 131/86 07/29 1919 B/P Mean 101 07/29 1919 O2 Delivery Room air 07/29 1919 Temp 36.6 07/29 1919 Pulse 92 07/29 1919 Resp 22 07/29 1919 Last Documented: Result Date Time Pulse Ox 100 07/29 0005 B/P 128/72 07/29 4 B/P Mean 90 07/29 4 O2 Delivery Room air 07/29 4 Pulse 92 07/29 4 Resp 20 07/29 4 Temp 37.7 07/28 2303 Review of Vital Signs Reviewed Focused PE General/Const General/Const Awake, Alert, No acute distress, Well appearing, Well developed , Well hydrated, Well nourished, Cooperative, Not toxic appearing Ears/Nose/Throat Ears/Nose/Throat Airway patent MS Neck Neck Full range of motion Resp/Chest Respiratory/Chest Atraumatic, Breath sounds NL, Breath sounds = bilat, No respiratory distress, No rales, No rhonchi, No wheezing, No retractions, No stridor, No chest tenderness, No chest wall deformity, No crepitus Cardiovascular Cardiovascular Heart rate NL, Regular rhythm, Heart sounds NL Heart Rate/Rhythm Negative: Bradycardia, Tachycardia, Irregular rhythm, Irreg irregular rhythm. Abdomen/GI Abdomen/GI No distention MS Back Back Full range of motion, Painless range of motion Skin Skin Color NL, No rash, Warm, Dry, Intact Neurologic Neurologic Oriented X3, Speech NL, No motor deficits, CN II - XII intact, Gait NL Additional PE MS Head Head Atraumatic, Normocephalic Eyes Eyes EOMI Lymphatic Lymphatic No gross adenopathy Psychiatric Psychiatric Affect NL, Mood NL Interpretation Diagnostics Lab Results Interpretation Results Laboratory Tests 07/28/201922: [Embedded Image Not Available] Laboratory Tests: 07/28 07/28 07/28 07/28 2259 1937 1929 1922 Chemistry Lactic Acid (0.4 - 1.9 mmol/L) 0.8 B-Natriuretic Peptide (0 - 100 PG/ML) 19.0 Serology SARS CoV-2 RNA Rapid AYAAN (Negative) NEGATIVE Urines Urine Color (YEL/STRAW) YELLOW Urine Appearance (CLEAR) CLEAR Urine pH (5.0 - 7.0) 5.0 Ur Specific [place] (1.005 - 1.030) 1.017 Urine Protein (NEGATIVE) NEGATIVE Urine Glucose (UA) (NEGATIVE) NEGATIVE Urine Ketones (NEGATIVE) NEGATIVE Urine Blood (NEGATIVE) NEGATIVE Urine Nitrite (NEGATIVE) NEGATIVE Urine Bilirubin (NEGATIVE) NEGATIVE Urine Urobilinogen (0.2 - 1.0 mg/dL) 0.2 Ur Leukocyte Esterase (NEGATIVE) NEGATIVE Urine RBC (0 - 3 RBC/HPF) 0-3 Urine WBC (0 - 3 WBC/HPF) 0-3 Ur Squamous Epith Cells (NONE SEEN /HPF) NONE SEEN Urine Bacteria (NONE SEEN /HPF) NONE SEEN 07/28 1922 Chemistry Sodium (134 - 147 mEq/L) 144 Potassium (3.4 - 5.0 mEq/L) 3.8 Chloride (100 - 108 mEq/L) 113 H Carbon Dioxide (21 - 33 mEq/l) 26 Anion Gap (0 - 20) 9 BUN (7 - 18 mg/dL) 13 Creatinine (0.6 - 1.3 mg/dL) 1.1 Glomerular Filtr Rate (90 - 95) 83.8 L Glucose (70 - 110 mg/dL) 114 H Calcium (8.0 - 10.5 mg/dL) 8.6 Troponin I (0.000 - 0.045 ng/mL) 0.010 Coagulation D-Dimer (<=500 ng/mlFEU) 428 Hematology WBC (4.5 - 11.0 x10 3/uL) 9.1 RBC (4.00 - 5.60 x10 6/uL) 5.32 Hgb (12.5 - 16.9 g/dL) 14.2 Hct (37.5 - 50.7 %) 44.2 MCV (81.0 - 99.0 fL) 83.1 MCH (27.0 - 33.0 pg) 26.7 L MCHC (33.0 - 37.0 g/dL) 32.1 L RDW (11.5 - 14.5 %) 14.6 H Plt Count (150 - 400 x10 3/uL) 181 MPV (7.0 - 9.0 fL) 11.1 H Neut % (Auto) (56.0 - 77.0 %) 76.8 Lymph % (Auto) (14.0 - 32.0 %) 15.6 Crowley % (Auto) (4.8 - 9.0 %) 5.8 Eos % (Auto) (0.3 - 3.7 %) 1.3 Baso % (Auto) (0.0 - 2.0 %) 0.2 Neut # (Auto) (2.0 - 7.6 x10 3/uL) 6.98 Lymph # (Auto) (1.0 - 3.8 x10 3/uL) 1.42 Crowley # (Auto) (0.1 - 0.8 x10 3/uL) 0.53 Eos # (Auto) (0.0 - 0.2 x10 3/uL) 0.12 Baso # (Auto) (0.0 - 0.2 x10 3/uL) 0.02 Abs Immat Gran (auto) (0.00 - 0.03 x10 3/uL) 0.03 Add Manual Diff NO Immature Gran % (0.0 - 2.0 %) 0.3 Nucleated RBC % (0 - 0 %) 0.0 Nucleated RBCs # (Man) (0.0 - 0.1 x10 3/uL) 0.00 Microbiology: Date/Time Procedure - Status Source Growth 07/28 1944 MRSA DNA Surveillance Screen - COMP NASAL 07/28 1937 Blood Culture - RECD BLOOD 07/28 1937 Blood Culture - RECD BLOOD Recent Impressions: RADIOLOGY - XR CHEST 1 V 07/29 1935 Report Impression - Status: SIGNED Entered: 07/28/20201947 IMPRESSION: 1. No radiographic evidence of acute cardiopulmonary disease. SL: 131 Impression By: José - Jim Beck M.D. ECG #1 Interpretation ECG Documented in MUSE Yes Date 07/28/20 Time 1922 Interpreted by ED physician NL ECG Interpretation Normal rate, Normal sinus rhythm, No acute ischemic changes, No STEMI, Normal axis, diffuse Twave abnormalities Rate 81 Re-Evaluation MDM )( Re-Evaluation/Progress #1 Text/Dict Note Initiated sepsis work-up. Time of Re-Eval 1924 )( Re-Eval Status Unchanged Re-Evaluation/Progress #2 Text/Dict Note VSS and improved. AAOx4. All labs and imaging on actionable white count normal. Patient states he feels well enough to go home. 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 No nausea or vomit emergency room. Patient ate food while he was in the emergency room. Currently denies chest pain palpitation shortness of breath. Time of Eval 2346 Re-Eval Status Improved ED Course Medication(s) Ordered Medication(s) Ordered: Anti-Infective Agents Sig/Alina Start time Last Medication Dose Route Stop Time Status Admin Azithromycin 500 MG X1ED STA 07/28 1929 DC 07/28 Sodium Chloride 250 ML IV 07/28 Meropenem 500 MG X1ED STA 07/28 1930 DC 07/28 Sterile Water 10 ML IV 07/28 Electrolytic, Caloric, And Mauricio Sig/Alina Start time Last Medication Dose Route Stop Time Status Admin Sodium Chloride 1,000 ML X1ED STA 07/28 1930 DC / IV 07/28 Sodium Chloride 0 ASDIR PRN 07/28 1915 DCD IV 07/29 1804 Gastrointestinal Drugs Sig/Alina Start time Last Medication Dose Route Stop Time Status Admin Meclizine HCl 25 MG X1ED STA 07/28 2230 CAN PO 07/29 2231 Patient Discharge Departure Vital Signs/Condition Vital Signs First Documented: Result Date Time Pulse Ox 97 / 1920 B/P 131/86 / 1920 B/P Mean 101 / 1920 O2 Delivery Room air 07/28 192 Temp 36.6 / 1920 Pulse 92 / 1920 Resp 22 07/28 1920 Last Documented: Result Date Time Pulse Ox 100 / 0005 B/P 128/72 06/ 0005 B/P Mean 90 06/06 0005 O2 Delivery Room air 06/ 0005 Pulse 92 06/06 0005 Resp 20 / 0005 Temp 37.7 /05 2303 All vital signs available at the time of this entry have been reviewed. Clinical Impression Clinical Impression Primary Impression: URI (upper respiratory infection) Disposition Decision Discharge )( Discharged to Home Yes )( Time 2348 )( Date 07/28/20 Discharge/Care Plan Counseled Regarding Diagnosis, Lab results, Imaging studies, Prescriptions, Need for follow-up, When to return to ED (Auto) Prescriptions Current Visit Scripts AZITHROMYCIN (Z-CITLALY) 250 MG PO ASDIR AZITHROMYCIN (Z-CITLALY) 250 MG PO ASDIR #6 TABS Take 2 tablets today, then 1 tablet daily thereafter for a total of 5 days of treatment. KETOROLAC (TORADOL) 10 MG PO Q6H PRN PRN PAIN KETOROLAC (TORADOL) 10 MG PO Q6H PRN PRN PAIN #20 TABS Patient Instructions ED Chest Pain, Noncardiac Referrals PRIMARY CARE at 1648 RPT #:[id number] END OF REPORT [facility] 2019-11-12 15:26:00 [facility] ([facility]) EMERGENCY PROVIDER REPORT REPORT#:[id number] REPORT STATUS: Signed DATE:11/12/19 TIME: 152 PATIENT: ANGELINA CRAIG UNIT #: [id number] ROOM/BED: AGE: 54 SEX: M PCP PHYS: No Primary or Family Physician SERVICE AUTHOR: Roxann Hadley MD * ALL edits or amendments must be made on the electronic/computer document * HPI-URI/Cough/Cold General Confirmed Patient Yes Initial Greet Date/Time 11/12/19 1407 PCP none Presentation Chief Complaint Cough, productive Free Text HPI Notes Free Text HPI Notes 54-year-old male smoker with no PMH p/w cough. Patient reports acute onset of symptoms that began yesterday. He notes his cough is productive of greenish/ yellow sputum. He denies associated myalgias, rhinorrhea, congestion, sore throat, chest pain, shortness of breath, fever, abdominal pain, nausea/vomiting, diarrhea, melena, hematuria, hematochezia, lower extremity swelling or calf pain. He does admit to associated left hip pain that radiates from his hip to the foot. It is tight and intermittent. He notes it is been present for several weeks and he was seen here in the ED and had an evaluation done, which included x-rays. Review of Systems ROS Statements All systems rev neg except as marked. Past Medical History - Adult Stated Complaint COUGH AND HIP PAIN Allergies Coded Allergies: Penicillins (Mild, RASH 11/12/19) Home Medications Reported Medications No Known Home Medications Pt reports no significant: Past medical history Alcohol Use Alcohol use (social EtOH use) Drug Use Denies recreational drugs Smoking status for patients 13 years old or older: Current some day smoker (2 pks/wk) Physical Exam Vital Signs Vital Signs First Documented: Result Date Time Pulse Ox 98 11/11 1412 B/P 130/78 11/11 1412 B/P Mean 95 11/11 1412 O2 Delivery Room air 11/11 1412 Temp 37.3 11/11 1412 Pulse 87 11/11 1412 Resp 18 11/11 1412 Last Documented: Result Date Time Pulse Ox 98 11/11 1708 B/P 136/82 11/11 1708 B/P Mean 100 11/11 1708 O2 Delivery Room air 11/11 1708 Pulse 97 11/11 1708 Resp 18 11/11 1708 Temp 37.3 11/11 1412 Review of Vital Signs Reviewed Focused PE General/Const General/Const Awake, Alert, No acute distress Text/Dict Notes Afebrile, sitting comfortably in chair in NAD, nontoxic, appears well clinically Ears/Nose/Throat Ears/Nose/Throat Mucous membranes moist MS Neck Neck Supple, No swelling Resp/Chest Respiratory/Chest No respiratory distress, No rales, No rhonchi Text/Dict Notes Intermittent cough present, faint scattered wheeze noted Cardiovascular Cardiovascular Heart rate NL, Regular rhythm, Heart sounds NL Abdomen/GI Abdomen/GI Soft, Non-tender, No distention Skin Skin Warm, Dry Neurologic Neurologic Oriented X3, Speech NL Text/Dict Notes Moves all extremities equally Additional PE MS Head Head Atraumatic, Normocephalic MS Lower Extrem Lower Ext/Pelvis/MS No swelling, Non-tender Psychiatric Psychiatric Affect NL, Mood NL Interpretation Diagnostics Lab Results Interpretation Results Laboratory Tests: 11/11 141 Serology SARS-CoV-2 (PCR) (Negative) Negative Recent Impressions: RADIOLOGY - XR CHEST 2 V 11/11 1556 Report Impression - Status: SIGNED Entered: 11/12/2019 1602 IMPRESSION: 1. No chest radiographic evidence of acute cardiopulmonary disease. SL: OCO-H Impression By: Naima Jimenez M.D. Imaging Statement Radiographic studies reviewed and considered in the medical decision-making. Point of Care Testing Pulse Oximetry Pulse Ox % 98 On: Room air Interpretation Interpreted by me, Pulse oximetry normal Time 1412 Radiography X-Ray Chest View PA lat Text/Dict Note IMPRESSION: 1. No chest radiographic evidence of acute cardiopulmonary disease. SL: OCO-H Impression By: Naima Jimenez M.D. Interpretation/Wet Read by Interpret - Radiologist Re-Evaluation MDM Free Text MDM Notes Free Text MDM Notes Pt may be reached @ for his COVID results. Re-Evaluation/Progress Re-Evaluation/Progress Text/Dict Note Patient re-eval, he remains well-appearing. Discussed results and plan to discharge home with an inhaler, a prescription for tessalon perles and a referral to spine for his sciatica. Also advised on smoking cessation. Patient expressed understanding and agreement the plan. Time of Re-Eval 1625 ED Course Medication(s) Ordered Medication(s) Ordered: Autonomic Drugs Sig/Alina Start time Last Medication Dose Route Stop Time Status Admin Albuterol Sulfate 2 PUFF X1ED STA 11/11 1417 DC 11/11 INH 11/11 1418 1434 Ipratropium [place] 2 PUFF X1ED STA 11/11 1416 DC 11/11 INH 11/11 1417 1442 Patient Discharge Departure Vital Signs/Condition Vital Signs First Documented: Result Date Time Pulse Ox 98 11/11 1412 B/P 130/78 11/11 1412 B/P Mean 95 11/11 1412 O2 Delivery Room air 11/11 1412 Temp 37.3 11/11 1412 Pulse 87 11/11 1412 Resp 18 11/11 1412 Last Documented: Result Date Time Pulse Ox 98 11/11 1708 B/P 136/82 11/11 1708 B/P Mean 100 11/11 1708 O2 Delivery Room air 11/11 1708 Pulse 97 11/11 1708 Resp 18 11/11 1708 Temp 37.3 11/11 1412 All vital signs available at the time of this entry have been reviewed. Condition Stable Clinical Impression Clinical Impression Primary Impression: Viral URI with cough Secondary Impressions: Sciatica of left side, Smoking Disposition Decision Discharge )( Discharged to Home Yes )( Time 1632 )( Date 11/12/19 Discharge/Care Plan Counseled Regarding Diagnosis, Imaging studies, Prescriptions, Need for follow- up, Smoking cessation, When to return to ED Prescriptions tessalon perles, albuterol HFA (Auto) Prescriptions Current Visit Scripts No Known Home Medications Referrals No Primary or Family Physician (PCP/Family) at 4288 RPT #:[id number] END OF REPORT [facility] 2019-10-30 11:04:00 [facility] ([facility]) EMERGENCY PROVIDER REPORT REPORT#:[id number] REPORT STATUS: Signed DATE:10/30/19 TIME: 1104 PATIENT: ANGELINA CRAIG UNIT #: [id number] ROOM/BED: AGE: 54 SEX: M PCP PHYS: No Primary or Family Physician SERVICE AUTHOR: Bernadine Ross * ALL edits or amendments must be made on the electronic/computer document * HPI-Extremity Prob Lower General Confirmed Patient Yes Patient Type New patient Initial Greet Date/Time 10/30/19 1104 Presentation Chief Complaint left lumbar back pain radiating down buttock to left posterior leg Hx Obtained From Patient Onset Occurred Weeks ago (2) Symptom Duration Waxes and wanes Progression since Onset Gradually improving Caused by No trauma by history Location left lumbar back Quality Painful Associated Other Pt denies other symptoms Exacerbated by Nothing Relieved by Nothing Free Text HPI Notes Free Text HPI Notes 54-year-old male with no significant PMHx presents to ER with left lumbar back pain radiating into left buttock down back left leg, onset 2 weeks ago; patient states pain is resolving, however sent here by his employer to be cleared to return to work. Denies saddle anesthesia-no incontinence of urine or stool; no weakness or paresthesia lower extremities Review of Systems ROS Statements All systems rev neg except as marked. Focused Review of Systems Constitutional Denies: Chills, Fever. Musculoskeletal Reports: Back pain, Extremity pain. Denies: Extremity swelling. Neurologic Denies: Abnormal movement, Bladder dysfunction, Bowel dysfunction, Focal weakness, Generalized weakness, Numbness, Problem walking, Tingling. Past Medical History - Adult Stated Complaint LEFT HIP AND LEG PAIN X 2WEEKS, DENIES TRAUMA Allergies Coded Allergies: Penicillins (Mild, RASH 04/02/16) Home Medications Reported Medications No Known Home Medications Physical Exam Vital Signs Vital Signs First Documented: Result Date Time Pulse Ox 97 10/29 1103 B/P 144/78 10/29 1103 B/P Mean 100 10/29 1103 O2 Delivery Room air 10/29 1103 Temp 36.8 10/29 1103 Pulse 87 10/29 1103 Resp 16 10/29 1103 Last Documented: Result Date Time Pulse Ox 97 10/29 1103 B/P 144/78 10/29 1103 B/P Mean 100 10/29 1103 O2 Delivery Room air 10/29 1103 Temp 36.8 10/29 1103 Pulse 87 10/29 1103 Resp 16 10/29 1103 Review of Vital Signs Reviewed Focused PE General/Const General/Const Awake, Alert, Cooperative Resp/Chest Respiratory/Chest Breath sounds NL, Breath sounds = bilat, No rales, No rhonchi, No wheezing Cardiovascular Cardiovascular Heart rate NL, Regular rhythm, Heart sounds NL MS Lower Extrem Text/Dict Notes Left lumbar paraspinal tenderness radiating into the left buttock and down posterior left leg; no saddle anesthesia-no incontinence of urine or stool; no paresthesia or weakness of lower extremities. Normal gait MS Ankle/Foot Ankle/Foot Inspection NL Skin Skin Warm, Dry, Intact Neurologic Neurologic Oriented X3, Speech NL, No motor deficits, No sensory deficits, Gait NL Interpretation Diagnostics Lab Results Interpretation Results Recent Impressions: RADIOLOGY - XR L-SPINE 2/3 VIEWS 10/29 1133 Report Impression - Status: SIGNED Entered: 10/30/2019 1139 IMPRESSION: 1. Degenerative change. SL: OCO-H Impression By: Naima Jimenez M.D. Point of Care Testing Pulse Oximetry Pulse Ox % 97 On: Room air Interpretation Interpreted by me, Pulse oximetry normal Re-Evaluation MDM Re-Evaluation/Progress Re-Evaluation/Progress Time of Re-Eval 1210 Re-Eval Status Unchanged Compartment Syndrome There are no signs or symptoms of compartment syndrome in the injured extremity at the time of this examination. Any pain the patient has is in proportion to the injury, the peripheral circulation is intact, capillary refill is not delayed, and there is no numbness, tingling or paresthesia. Tissue Perfusion Reassessment Patient tissue perfusion reassessment completed. Patient Discharge Departure Vital Signs/Condition Vital Signs First Documented: Result Date Time Pulse Ox 97 10/29 1103 B/P 144/78 10/29 1103 B/P Mean 100 10/29 1103 O2 Delivery Room air 10/29 1103 Temp 36.8 10/29 1103 Pulse 87 10/29 1103 Resp 16 10/29 1103 Last Documented: Result Date Time Pulse Ox 97 10/29 1103 B/P 144/78 10/29 1103 B/P Mean 100 10/29 1103 O2 Delivery Room air 10/29 1103 Temp 36.8 10/29 1103 Pulse 87 10/29 1103 Resp 16 10/29 1103 All vital signs available at the time of this entry have been reviewed. Condition Stable Clinical Impression Clinical Impression Primary Impression: Back pain of lumbar region with sciatica Secondary Impressions: Musculoskeletal strain Disposition Decision Discharge )( Discharged to Home Yes )( Time 1211 )( Date 10/30/19 Discharge/Care Plan Counseled Regarding Diagnosis, Imaging studies, Need for transfer, When to return to ED (Auto) Prescriptions Current Visit Scripts No Known Home Medications Referrals No Primary or Family Physician (PCP/Family) at 1211 RPT #:[id number] END OF REPORT [facility] 2019-10-30 11:04:00 [facility] ([facility]) EMERGENCY PROVIDER REPORT REPORT#:[id number] REPORT STATUS: Signed DATE:10/30/19 TIME: 1104 PATIENT: ANGELINA CRAIG UNIT #: [id number] ROOM/BED: AGE: 54 SEX: M PCP PHYS: No Primary or Family Physician SERVICE AUTHOR: Bernadine Ross * ALL edits or amendments must be made on the electronic/computer document * Bernadine Ross. 10/30/19 1104: HPI-Extremity Prob Lower General Confirmed Patient Yes Patient Type New patient Presentation Chief Complaint left lumbar back pain radiating down buttock to left posterior leg Hx Obtained From Patient Onset Occurred Weeks ago (2) Symptom Duration Waxes and wanes Progression since Onset Gradually improving Caused by No trauma by history Location left lumbar back Quality Painful Associated Other Pt denies other symptoms Exacerbated by Nothing Relieved by Nothing Free Text HPI Notes Free Text HPI Notes 54-year-old male with no significant PMHx presents to ER with left lumbar back pain radiating into left buttock down back left leg, onset 2 weeks ago; patient states pain is resolving, however sent here by his employer to be cleared to return to work. Denies saddle anesthesia-no incontinence of urine or stool; no weakness or paresthesia lower extremities Review of Systems ROS Statements All systems rev neg except as marked. Focused Review of Systems Constitutional Denies: Chills, Fever. Musculoskeletal Reports: Back pain, Extremity pain. Denies: Extremity swelling. Neurologic Denies: Abnormal movement, Bladder dysfunction, Bowel dysfunction, Focal weakness, Generalized weakness, Numbness, Problem walking, Tingling. Past Medical History - Adult Stated Complaint LEFT HIP AND LEG PAIN X 2WEEKS, DENIES TRAUMA Allergies Coded Allergies: Penicillins (Mild, RASH 04/02/16) Home Medications Reported Medications No Known Home Medications Physical Exam Vital Signs Vital Signs First Documented: Result Date Time Pulse Ox 97 10/29 1103 B/P 144/78 10/29 1103 B/P Mean 100 10/29 1103 O2 Delivery Room air 10/29 1103 Temp 36.8 10/29 1103 Pulse 87 10/29 1103 Resp 16 10/29 1103 Last Documented: Result Date Time Pulse Ox 99 10/29 1221 B/P 125/85 10/29 1221 B/P Mean 98 10/29 1221 Temp 36.9 10/29 1221 Pulse 83 10/29 1221 Resp 18 10/29 1221 O2 Delivery Room air 10/29 1103 Review of Vital Signs Reviewed Focused PE General/Const General/Const Awake, Alert, Cooperative Resp/Chest Respiratory/Chest Breath sounds NL, Breath sounds = bilat, No rales, No rhonchi, No wheezing Cardiovascular Cardiovascular Heart rate NL, Regular rhythm, Heart sounds NL MS Lower Extrem Text/Dict Notes Left lumbar paraspinal tenderness radiating into the left buttock and down posterior left leg; no saddle anesthesia-no incontinence of urine or stool; no paresthesia or weakness of lower extremities. Normal gait MS Ankle/Foot Ankle/Foot Inspection NL Skin Skin Warm, Dry, Intact Neurologic Neurologic Oriented X3, Speech NL, No motor deficits, No sensory deficits, Gait NL Interpretation Diagnostics Lab Results Interpretation Results Recent Impressions: RADIOLOGY - XR L-SPINE 2/3 VIEWS 10/29 1133 Report Impression - Status: SIGNED Entered: 10/30/2019 1139 IMPRESSION: 1. Degenerative change. SL: OCO-H Impression By: Naima Jimenez M.D. Point of Care Testing Pulse Oximetry Pulse Ox % 97 On: Room air Interpretation Interpreted by me, Pulse oximetry normal Re-Evaluation MDM Re-Evaluation/Progress Re-Evaluation/Progress Time of Re-Eval 1210 Re-Eval Status Unchanged Compartment Syndrome There are no signs or symptoms of compartment syndrome in the injured extremity at the time of this examination. Any pain the patient has is in proportion to the injury, the peripheral circulation is intact, capillary refill is not delayed, and there is no numbness, tingling or paresthesia. Tissue Perfusion Reassessment Patient tissue perfusion reassessment completed. Patient Discharge Departure Vital Signs/Condition Vital Signs First Documented: Result Date Time Pulse Ox 97 10/29 1103 B/P 144/78 10/29 1103 B/P Mean 100 10/29 1103 O2 Delivery Room air 10/29 1103 Temp 36.8 10/29 1103 Pulse 87 10/29 1103 Resp 16 10/29 1103 Last Documented: Result Date Time Pulse Ox 99 10/29 1221 B/P 125/85 10/29 1221 B/P Mean 98 10/29 1221 Temp 36.9 10/29 1221 Pulse 83 10/29 1221 Resp 18 10/29 1221 O2 Delivery Room air 10/29 1103 All vital signs available at the time of this entry have been reviewed. Condition Stable Clinical Impression Clinical Impression Primary Impression: Back pain of lumbar region with sciatica Secondary Impressions: Musculoskeletal strain Disposition Decision Discharge )( Discharged to Home Yes )( Time 1211 )( Date 10/30/19 Discharge/Care Plan Counseled Regarding Diagnosis, Imaging studies, Need for transfer, When to return to ED (Auto) Prescriptions Current Visit Scripts No Known Home Medications Referrals No Primary or Family Physician (PCP/Family) Wolfgang Frost 11/04/19 1102: HPI-Extremity Prob Lower General Initial Greet Date/Time 10/30/19 1104 Free Text HPI Notes Free Text HPI Notes Patient evaluated with midlevel. 54-year-old male presents with low back pain radiating down his left buttock and left leg x2 weeks. Patient states that his pain is actually improving but he was sent by his employer to be cleared for return to work. Denies bowel or bladder incontinence, saddle anesthesia, abdominal pain, vomiting, diarrhea, constipation. Denies further any dysuria, frequency or urgency. Physical Exam Vital Signs Review of Vital Signs Reviewed Free Text PE Notes Free Text PE Notes General/Const General/Const Awake, Alert, No acute distress, Well appearing, Well developed , Well hydrated, Well nourished, Cooperative, Not toxic appearing MS Head Head Normocephalic Eyes Eyes PERRL, EOMI Ears/Nose/Throat Ears/Nose/Throat Airway patent, Mucous membranes moist, Tympanic membs NL Resp/Chest Respiratory/Chest Breath sounds NL, Breath sounds = bilat, No respiratory distress Cardiovascular Cardiovascular Heart rate NL, Regular rhythm, Heart sounds NL Abdomen/GI Abdomen/GI Soft, Non-tender, No guarding, No rebound, BS normoactive, No distention Skin Skin Color NL, No rash, Warm, Dry Neurologic Alert Oriented X3, Speech NL, No motor deficits, No sensory deficits, CN II - XII intact, Reflexes equal bilat, Cerebellar NL, Memory NL, Gait NL Agree with x-rays, impressions, and disposition. Patient Discharge Departure Supervising Physician Note MidLv/Doc Saw Pt 1 I have seen and evaluated this patient and agree with the nurse practitioner or physician seed laboratory assistant's documentation and assessment. Documentation of one or more elements of my assessment are included in the medical record. at 1211 at 1109 RPT #:[id number] END OF REPORT [facility]
--- NOTE | 2024-01-28 22:44 | ER ---
Nurse's Notes [facility] Name: Geoff Lloyd Age: 58 yrs Sex: Male : 1965 Arrival Date: 01/28/2024 Time: 22:27 Bed IW1 Private MD: Diagnosis: Periapical abscess without sinus;Dental pain;Dental caries, unspecified Presentation: 01/27 22:35 Chief complaint: Patient states: TOOTH ACHE ON THE UPPER AREA OF MOUTH. SAW DENTIST AND ha1 WAS TOLD NEED A ROOT CANAL, ALREADY TAKING ANTIBIOTICS. 22:35 Coronavirus screen: Vaccine status: Patient reports being unvaccinated. Ebola Screen: ha1 No symptoms or risks identified at this time. Initial Sepsis Screen: Does the patient meet any 2 criteria? No. Patient's initial sepsis screen is negative. Does the patient have a suspected source of infection? No. Patient's initial sepsis screen is negative. Risk Assessment: Do you want to hurt yourself or someone else? Patient reports no desire to harm self or others. Onset of symptoms was January 28, 2024. 22:35 Method Of Arrival: Ambulatory ha1 22:35 Acuity: DARA 5 ha1 Triage Assessment: 22:43 General: Appears uncomfortable, Behavior is cooperative. Pain: Complains of pain in ha1 frenulum and gums Pain does not radiate. Pain currently is 10 out of 10 on a pain scale. Quality of pain is described as aching. EENT: Reports pain in frenulum and gums. Neuro: Level of Consciousness is awake, alert, obeys commands, Oriented to person, place, time, situation. Cardiovascular: Patient's skin is warm and dry. Respiratory: Airway is patent Respiratory effort is even, unlabored, Respiratory pattern is regular, symmetrical. GI: No signs and/or symptoms were reported involving the gastrointestinal system. : No signs and/or symptoms were reported regarding the genitourinary system. Derm: Skin is pink, warm \T\ dry. Musculoskeletal: Circulation, motion, and sensation intact. Historical: - Allergies: 22:43 No Known Allergies; ha1 - Immunization history:: Adult Immunizations up to date. - Infectious Disease History:: Denies. - Social history:: Smoking status: Patient reports the use of cigarette tobacco products, smokes one pack cigarettes per day. Screenin:45 [facility] ED Fall Risk Assessment (Adult) History of falling in the last 3 months, ha1 including since admission No falls in past 3 months (0 pts) Confusion or Disorientation No (0 pts) Intoxicated or Sedated No (0 pts) Impaired Gait No (0 pts) Mobility Assist Device Used No (0 pt) Altered Elimination No (0 pt) Score/Fall Risk Level 0 - 2 = Low Risk Oriented to surroundings, Maintained a safe environment, Educated pt \T\ family on fall prevention, incl call for assistance when getting out of bed, Hourly rounding (assess needs \T\ fall precautionary measures) done. Abuse screen: Denies threats or abuse. Denies injuries from another. Nutritional screening: No deficits noted. Tuberculosis screening: No symptoms or risk factors identified. Vital Signs: 22:35 BP 163 / 97; Pulse 75; Resp 18 S; Temp 98.2; Pulse Ox 99% on R/A; Weight 102.06 kg; ha1 Height 6 ft. 2 in. ; Pain 10/10; 22:35 Body Mass Index 28.89 (102.06 kg, 187.96 cm) ha1 22:35 Pain Scale: Adult ha1 ED Course: 22:32 Patient arrived in ED. gm2 22:37 Elis Benavides PA-C is PHCP. sb4 22:37 Maciel Morris MD is Attending Physician. sb4 22:37 Patient has correct armband on for positive identification. ha1 22:37 Arm band placed on right wrist. ha1 22:43 Yomi Go DDS is Referral Physician. sb4 22:43 Triage completed. ha1 22:58 No provider procedures requiring assistance completed. Patient did not have IV access ha1 during this emergency room visit. 22:59 Provided Education on: FOLLOW [employer] . ha1 Administered Medications: 22:45 Drug: HYDROcodone-acetaminophen PO 5 mg-325 mg 2 tabs PO once Route: PO; ha1 22:58 Follow up: Response: No adverse reaction ha1 22:45 Drug: Viscous Lidocaine Mucous Membrane Liquid (4 %) 5 ml Mucous Membrane once Route: ha1 Mucous Membrane; 22:58 Follow up: Response: No adverse reaction ha1 Medication: 22:59 VIS not applicable for this client. ha1 Outcome: 22:43 Discharge ordered by . sb4 22:58 Discharged to home ambulatory, with friend, ha1 22:58 Condition: stable 22:58 Discharge instructions given to patient, Instructed on discharge instructions, follow up and referral plans. medication usage, Demonstrated understanding of instructions, follow-up care, medications, Prescriptions given X 1, :59 Patient left the ED. ha1 Signatures: Ena Vazquez RN RN ha1 Elis Benavides, PAMissyC PABonnie 4 Nora Rose 2
--- NOTE | 2024-01-28 22:44 | EDPHYS ---
Physician Documentation [facility] Name: Geoff Lloyd Age: 58 yrs Sex: Male : 1965 Arrival Date: 01/28/2024 Time: 22:27 Bed IW1 Private MD: ED Physician Maciel Morris HPI: 01/27 22:53 This 58 yrs old Black Male presents to ER via Ambulatory with complaints of Toothache. sb4 22:53 The patient presents with pain, redness, swelling. Onset: The symptoms/episode sb4 began/occurred 3 day(s) ago, and became worse today. patient reports left sided dental pain, upper and lower, for 3 days now. he states that he went to the dentist today, had xrays done, was told he needed a root canal on his top and bottom left. he was put on antibiotics in the interim and told to take motrin. states his pain got significantly worse after the dentist appointment because of having to bite down for the xrays. Historical: - Allergies: 22:43 No Known Allergies; ha1 - Immunization history:: Adult Immunizations up to date. - Infectious Disease History:: Denies. - Social history:: Smoking status: Patient reports the use of cigarette tobacco products, smokes one pack cigarettes per day. ROS: 22:53 Constitutional: Negative for fever, chills, and weight loss, sb4 22:53 ENT: Positive for dental pain, 22:53 All other systems are negative, Exam: 22:53 Head/Face: Normocephalic, atraumatic. Eyes: Extra-ocular motions intact. Periorbital sb4 areas with no swelling, redness, or edema. Respiratory: No increased work of breathing, no retractions or nasal flaring. Skin: Warm, dry with normal turgor. Normal color with no rashes, no lesions, and no evidence of cellulitis. 22:53 Constitutional: The patient appears alert, awake, in obvious pain, uncomfortable, 22:53 ENT: Dental exam: dental caries, that is moderate, diffusely, gum swelling, that is moderate, specifically in the gums, missing teeth, diffusely, Vital Signs: 22:35 BP 163 / 97; Pulse 75; Resp 18 S; Temp 98.2; Pulse Ox 99% on R/A; Weight 102.06 kg; ha1 Height 6 ft. 2 in. ; Pain 10/10; 22:35 Body Mass Index 28.89 (102.06 kg, 187.96 cm) ha1 22:35 Pain Scale: Adult ha1 MDM: 22:37 Medical Screening Exam initiated sb4 22:55 Data reviewed: vital signs, nurses notes, and as a result, I will discharge patient. sb4 Counseling: I had a detailed discussion with the patient and/or guardian regarding the historical points, exam findings, and any diagnostic results supporting the discharge/admit diagnosis, the need for outpatient follow up, a dentist, to return to the emergency department if symptoms worsen or persist or if there are any questions or concerns that arise at home. Administered Medications: 22:45 Drug: HYDROcodone-acetaminophen PO 5 mg-325 mg 2 tabs PO once Route: PO; ha1 22:58 Follow up: Response: No adverse reaction ha1 22:45 Drug: Viscous Lidocaine Mucous Membrane Liquid (4 %) 5 ml Mucous Membrane once Route: ha1 Mucous Membrane; 22:58 Follow up: Response: No adverse reaction ha1 Disposition: 01/28 04:20 Co-signature as Attending Physician, Maciel Morris MD I agree with the assessment sp4 and plan of care. I reviewed the patient's care provided by the Advanced Practice Provider and agree with the diagnosis and treatment plan. Disposition Summary: 01/28/24 22:43 Discharge Ordered Notes: Location: Home sb4 Problem: new sb4 Symptoms: have improved sb4 Condition: Stable sb4 Diagnosis - Periapical abscess without sinus sb4 - Dental pain sb4 - Dental caries, unspecified sb4 Followup: sb4 - With: Yomi Go DDS - When: As needed - Reason: Recheck today's complaints, Re-evaluation by your physician Discharge Instructions: - Discharge Summary Sheet sb4 - Dental Caries, Adult sb4 - Dental Pain, [id number] sb4 - Dental Abscess, [id number] sb4 Forms: - Antibiotic Education sb4 - Prescription Opioid Use sb4 - Patient Portal Instructions sb4 - Leadership Thank You Letter sb4 Prescriptions: - acetaminophen-codeine 300-30 mg Oral tablet - take 1 tablet ORAL route every 4 to 6 hours as needed for pain; 12 tablet; sb4 Refills: 0, Product Selection Permitted Signatures: Ena Vazquez RN RN ha1 Elis Benavides, BERNARDA PAMissyC sb4 Maciel Morris MD MD sp4 Corrections: (The following items were deleted from the chart) 01/27 22:53 22:53 This 58 yrs old Black Male presents to ER via Ambulatory with complaints of sb4 Toothache, Pt said he went to the dentist today and they gave him antibotics but he is in pain. sb4
[2024-01-28] MEDS ORDERED: HYDROCODONE/APAP 5/325 MG TAB ONE (22:51)
[2024-01-28] MEDS ORDERED: LIDOCAINE VISCOUS 2% 10ML ORAL SOLN ONE (22:51)
[2024-01-29 06:40] VITALS: BP 163/97; TEMP 98.2; O2SAT 99
== END 2024-01-28 22:59 | disposition home or self-care (01) ==
LOC: ER 22:27
DX: K04.7 Periapical abscess without sinus (principal)
CPT/HCPCS: 99283